=== PATIENT | male | born 1940 | race Caucasian/White ===

== ENCOUNTER 2016-06-11 18:44 | Inpatient (IN) | payer MEDICARE, BC ==
[~2016-06-11] VITALS: Ht 177.8 cm; Wt 139.1 kg
--- NOTE | ~2016-06-11 | CON ---
PATIENT'S NAME: MARK ANTHONY GARVEY [facility] AGE: 75 Y [address] ROOM: [address] [place], [place] [address] LOCATION: [facility] ADMIT DATE: 06/11/2016 Consultation DISCHARGE DATE: FAMILY PHYSICIAN: Conrad Russell MD ATTENDING PHYSICIAN: TUYET PETTY REFERRING PHYSICIAN: Erma Su MD A consult to Dr. Lynn. 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 The history of present illness is obtained from Dr. Lynn; from review of Mr. Garvey' current and old chart and from the [facility] Medical Record. Mr. Garvey is unable to provide a history as he is currently intubated and sedated and his family is unavailable. Mr. Garvey was admitted to [facility] on 2016 and his course has been stormy. He is critically ill due to acute respiratory failure, which was symptomatic for approximately 2 weeks prior to his admission to [facility]. The patient is being treated for acute respiratory distress syndrome and is not improving. On 06/25/2016, the patient underwent bronchoscopy with therapeutic aspiration of secretions and bronchoalveolar lavage and bronchial washings of the right lower lobe to try to characterize his acute respiratory distress syndrome or acute interstitial pneumonia. The patient has been on amiodarone, so respiratory failure due to amiodarone is a consideration. In any case, the patient has progressive thrombocytopenia and now has deep venous thrombosis. Upon admission; the white count was 12,200, the hemoglobin was 10.6, the MCV was 110, and the platelets were 122,000. The patient had 50 segs, 4 bands, 8 lymphs, and 33 atypical lymphocytes. The INR was 1.1 and the PTT was 29. On 06/28/2016, the white count is 14,500, the hemoglobin 9.9, MCV 116, and the platelets 30,000. The patient had 68% neutrophils and 28% lymphocytes. Mr. Garvey has received heparin on 2 occasions during the hospitalization. He received heparin 5000 units once on 06/12/2016 and once on 06/13/2016. This was unfractionated heparin. On 06/24/2016, heparin was initiated as well. The patient underwent lower extremity ultrasound on 06/28/2016, which revealed deep venous thrombosis in the right posterior tibial and left gastrocnemius vein. Mr. Garvey has a history of thrombocytopenia. On 08/08/2015, he was seen in [facility] in referral from Dr. Russell, who had noted the patient was thrombocytopenic. In our office, the white count was 5510 PATIENT'S NAME: MARK ANTHONY GARVEY [facility] AGE: 75 Y [address] ROOM: [address] [place] [id number] LOCATION: [facility] ADMIT DATE: 06/11/2016 Consultation DISCHARGE DATE: FAMILY PHYSICIAN: Conrad Russell MD ATTENDING PHYSICIAN: TUYET PETTY with 36% granulocytes and 55% lymphocytes, the hemoglobin was 11.9, the MCV was 108, and the platelets were 83,000. The LDH was normal. The patient has a history of chronic lymphocytic leukemia, so the possibility of progressive CLL was weighed. The patient also has class 3 obesity, so the possibility of nonalcoholic fatty liver disease complicated with portal hypertension, complicated with hypersplenism was also found to exist. The patient underwent a CAT scan of the abdomen without IV contrast on 08/21/2015. Persistent splenomegaly was present. The spleen was stable and unchanged at 15 cm. There was no evidence of lymphadenopathy. There was extensive vascular calcification in the aortoiliac, femoral, and mesenteric arteries. A bilobed infrarenal abdominal aortic aneurysm was present. We presumed the patient's thrombocytopenia was due to nonalcoholic fatty liver disease leading to portal hypertension, leading to hypersplenism, and recommended proceeding that way. ACTIVE MEDICAL PROBLEMS, CHRONIC AND DIAGNOSED: 1. Class 3 obesity. 2. ASHD leading to a positive treadmill stress test prior to a knee operation in 2000. The patient underwent a 4-vessel CABG. In 2009, he had a PTCA and stent of the obtuse marginal. 3. Bilateral cataracts. 4. Hypercholesterolemia noted in 1994. 5. Type 2 diabetes mellitus noted in 2000, which had not been labile or associated with end-organ damage. 6. Essential arterial hypertension noted in 1990 when he went to donate blood. 7. Depression - situational- led for years. 8. Left-sided colonic diverticulosis noted in 2003 on a screening colonoscopy. 9. Osteoarthritis of the right elbow, right hip, and knees. 10. ASVD with a 4 cm abdominal aortic aneurysm noted in May 2009. 11. [place] light chain restricted, B-cell CLL, indolent, not requiring treatment. ACUTE MEDICAL ILLNESSES (RESOLVED), PAST SURGERIES, INJURIES: 1. In 1990, right and left carpal tunnel repair. 2. In 1998, right shoulder rotator cuff repair and right ulnar nerve decompression at the same time. 3. In 2000, 4-vessel CABG, MCKAY to LAD x2, and vein graft to the obtuse circumflex and posterior descending. 4. In 2000, left knee arthroscopy. 5. In 2000, left TKA. 6. In 2000, right TKA. 7. In 2003, screening colonoscopy. 8. In 2009, spiral fracture of the right distal humerus complicated by radial nerve palsy. PATIENT'S NAME: MARK ANTHONY GARVEY [facility] AGE: 75 Y [address] ROOM: [place] [address] LOCATION: [facility] ADMIT DATE: 06/11/2016 Consultation DISCHARGE DATE: FAMILY PHYSICIAN: Conrad Russell MD ATTENDING PHYSICIAN: TUYET PETTY 9. In 2009 (06/21), left heart catheterization, selective coronary angiography, PTCA and stent of the obtuse marginal. 10. Subdural hematoma. MEDICATIONS: 1. Albuterol. 2. Digoxin. 3. Albumin. 4. Pantoprazole. 5. Methylprednisolone. 6. ASA 325 mg p.o. b.i.d. 7. Norepinephrine. 8. Bisoprolol. 9. Levemir insulin. 10. Novolin insulin. ADVERSE REACTIONS TO MEDICATIONS, TRANSFUSIONS, ALLERGIES: 1. The patient has no known drug or food allergies. 2. The patient received 5 units of packed red blood cells in February 2011. TOBACCO: None. ALCOHOL: None. CAFFEINE: The patient used to consume 36 ounces. IMMUNIZATIONS: Positive childhood immunizations. Positive flu. Positive Pneumovax in 2006. Negative tetanus shot. Positive varicella zoster virus vaccine in 1999. FAMILY HISTORY: Mr. Garvey' mother of breast cancer at 55. His identical twin brother at 51 of a heart attack. SOCIAL HISTORY: and Ms. Garvey live in [place]. 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 He is retired. His is a nurse, who helped found the College [employer] at [employer]. They have a daughter in [place], [place]; a son in [place], [place]; 2 sons in [place], [place]; and a daughter in [place], [place]. PATIENT'S NAME: MARK ANTHONY GARVEY [facility] AGE: 75 Y [address] ROOM: [address] [place], [place] [address] LOCATION: [facility] ADMIT DATE: 06/11/2016 Consultation DISCHARGE DATE: FAMILY PHYSICIAN: Conrad Russell MD ATTENDING PHYSICIAN: TUYET PETTY REVIEW OF SYSTEMS: Unobtainable. PHYSICAL EXAMINATION: VITAL SIGNS: Pulse 64 and regular, blood pressure 115/55, respiratory rate 35, and temperature 97.3. GENERAL: Well-developed, obese, 75-year-old male, sedated, and on the ventilator. HEENT: An orotracheal and orogastric tube were in place. NECK: Without JVD or carotid bruits. SKIN: Seborrheic keratoses. CHEST: Decreased breath sounds bilaterally. No wheezes or crackles anterior. CHEST WALL: Healed vertical CABG scar. CV: Decreased S1 and S2. No murmurs, bruits, or adventitious sounds. ABDOMEN: Well-healed vertical scar on the epigastrium, well-healed horizontal scar just above the umbilicus. Bowel sounds decreased. No bruits. No masses, tenderness, or megaly. BACK AND SPINE: Well-healed keloidal scar over the upper thoracic spine from a cyst removal. GENITALIA AND RECTAL: Not examined. EXTREMITIES: Trace peripheral edema in the lower extremities. Right and left TKA scar, well healed. Stigma on the ventral aspect of the wrist, carpal tunnel. Pulses not palpable in the lower extremities. NEURO: The patient is sedated. IMPRESSION: 1. Low probability of heparin-induced thrombocytopenia. If heparin is otherwise essential for extracorporeal membrane oxygenation, heparin could be used with great caution. 2. Multifactorial thrombocytopenia. 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 This has never needed treatment. 3. The patient was predisposed to thrombocytopenia by his nonalcoholic fatty liver disease related to obesity leading to portal hypertension and hypersplenism. 4. The patient's lengthy hospitalization in the ICU is a risk factor for his thrombocytopenia as well. 5. An inferior vena cava filter would be no benefit if the patient needs anticoagulation for extracorporeal membrane oxygenation. 6. The big question is the patient's overall prognosis and how much we should push. The patient does not seem to be improving. He is on 100% oxygen and PEEP and his underlying medical condition is not good. He is developing renal failure and he has progressive anemia and thrombocytopenia. Best supportive care and possible withdrawal of PATIENT'S NAME: MARK ANTHONY GARVEY [facility] AGE: 75 Y [address] ROOM: [address] [place] [id number] LOCATION: [facility] ADMIT DATE: 06/11/2016 Consultation DISCHARGE DATE: FAMILY PHYSICIAN: Conrad Russell MD ATTENDING PHYSICIAN: TUYET PETTY intensive care unit support needs to be considered at this point. RECOMMEND: Diagnostic: Family visit to clarify his goals and what they would be in light of his current prognosis and the complications with deep venous thrombosis, thrombocytopenia, progressive renal insufficiency, and ARDS. Treatment: If extracorporeal membrane oxygenation is warranted and heparin needs to be employed, then platelet transfusions at the first sign of bleeding and possibly red blood cells would be warranted. PATIENT EDUCATION: Unable to visit with the patient and the family was unavailable, did visit with Dr. Pavon about these considerations. MD DANNIE SERNAB/modl /[id number] CC: MD Erma Cage MD Richard A Hranac, MD William M Vosik, MD d: 06/30/16 2248 t: 07/04/16 1327, CONSULTATION REPORT
--- NOTE | ~2016-06-11 | CATH ---
Cardiac Diagnostic Report Demographics Patient Name MARE Rasheed Gender Male Date of 1940 Age 75 year(s) Patient Number [id number] Date of Study 06/13/2016 Visit Number [id number] Room Number G62[address] [place] [id number] Ht 177.8 cm Wt 144.7 kg Referring Georges Primary Physician Physician Erma MOSER Performing Georges Secondary Physician Physician Erma MOSER Diagnostic Georges Assisting Physician Physician Erma MOSER Interventional Physician Electrician'S Assistant Physician Findings and Conclusions Diagnostic Findings and Conclusion Right heart cath performed. Diagnostic Recommendations Medical therapy. Procedure Description The patient was brought to the diagnostic cardiac catheterization-EP laboratory in the fasting, non-sedated state. Informed consent was obtained in the written and verbal form after the risks and benefits were explained. The patient had no further questions and agreed to proceed. The planned puncture-incision site(s) were shaved and prepped with ChloraPrep and draped in the usual sterile manner. Conscious sedation, supplemental oxygen, and pain control medications were delivered by a registered nurse under physician guidance. Surface ECG rhythm, blood pressure measurement, and pulse oximetry were monitored throughout the procedure. Venous access. The access site was infiltrated with 2% lidocaine. The vessel was entered with the Seldinger technique. A sheath was advanced into the vessel and used for catheter placement. Right heart catheterization. A [place] Maeve catheter was successfully advanced to the right atrium, right ventricle, pulmonary artery, and pulmonary artery wedge position under fluoroscopic guidance. Resting hemodynamics were obtained. Measurements included pressures, arterial and venous oxygen saturation samples, and cardiac output. The [place] was removed without difficulty. Venous hemostasis was achieved. The patient was transferred to a regular nursing floor via cart accompanied by a nurse. The patient left the laboratory in stable condition. Diagnostic Cath Status: Urgent Procedure Procedure Type Diagnostic procedure:Angiography:, RHC Indications: Dyspnea and Pulmonary hypertension. The procedure was explained in detail to the patient. Risks, complications and alternative treatments were reviewed. Written consent was obtained. Medications Reviewed with Patient prior to Procedure. Procedure Data Procedure Date Date: 06/13/2016Start: 01:21 PMEnd: 01:51 PM Entry Locations - Percutaneous access was performed through the Right Brachial vein (Primary location). A 7 Fr sheath was inserted. Hemostasis was successfully obtained using Manual Compression. Closure Comments: Pressure held by Kishor RT.. Devices Used - A6 Fr. Balloon Wedge Catheterwas used for:Right heart cath. Fluoroscopy Time: Diagnostic: 3:18 minutes. Total: 3:18 minutes. Fluoroscopy Dose: Diagnostic: 150 mGy. Total: 150 mGy. Estimated Blood Loss: 5 ml. Medical History Allergies - No known allergies. Risk Factors The patient risk factors include:prior PCI on 03/28/2009; prior CABG on 03/28/2000;obesity, physical activity, treated hypercholesterolemia, treated hypertension, orally-treated diabetes mellitus, chronic lung disease, last creatinine: 2.5 mg/dl, creatinine clearance: 51.45 ml/min, dyslipidemia and prior heart failure . Admission Data Admission Date: 06/11/2016 Admission Time: 09:34 PM Admit Source: Emergency department Insurance Payors: Medicare. Admission Medications + +------+-------+ + + + + !Medication!Dosage!Times !Last !Last !Administered !Comments ! ! ! !Per Day!Delivery !Delivery ! ! ! ! ! ! !Date !Time ! ! ! + +------+-------+ + + + + !Aspirin ! ! ! ! ! ! ! !(any) ! ! ! ! ! ! ! + +------+-------+ + + + + !Statin ! ! ! ! ! ! ! !(any) ! ! ! ! ! ! ! + +------+-------+ + + + + Hemodynamics Condition: Rest O2 Consumption: Estimated: 302.22Heart Rate: 80 bpm Pressures (mmHg) +-----+ + !Site !Pressure ! +-----+ + !RA ! (11) ! +-----+ + !RV !47/3 ,10 ! +-----+ + !PCW ! (12) ! +-----+ + !PA ! (36) ! +-----+ + Shunts Oxygen Values O2 Capacity 131.92 O2 Consumption 302.22 Signatures dtt: Erma Su: 06/13/16 1321 Physician Self Edit
--- NOTE | ~2016-06-11 | ECHO ---
Transthoracic Echocardiography Report (TTE) Demographics Patient Name GALINA GARVEY Date of Study 06/17/2016 Patient Number [id number] Visit Number [id number] Date of 1940 Room Number G6339 Gender Male Number Age 75 year(s) Referring Drew Martines MD Wind Farm Operations Manager Selene Borden [facility] Physician Zenaida Guillermo MD Physician Interpreting Georges Ritchie Shelver Physician MD Supervising Ordering MD/MLP Physician Nurse Stress Paraplanner Conclusions Contractility Score Summary Normal Left Ventricular contractility was noted. Summary The estimated left ventricular ejection fraction is 50-55%. Informed consent was obtained, bubble study was done, there is no evidence for a PFO or ASD. The right atrium is moderately dilated.Low normal RV function. Negative bubble study. Procedure Type of Study TTE procedure:Echo Limited w/o Contrast. Procedure Date Date: 06/17/2016 Start: 11:36 AM Study Location: Inpatient Portable Technical Quality: Good visualization Indications:Dyspnea/SOB. Additional Indications:Hypoxia Appropriate Use Criteria: 9 Patient Status: Routine Contrast Medium: Bubble Study. HR: 59 bpm BP: 160/67 mmHg Allergies - No known allergies. Doppler Measurements Findings Left Atrium The interatrial septum appears aneurysmal. Informed consent was obtained, bubble study was done, there is no evidence for a PFO or ASD. Right Atrium The right atrium is moderately dilated. Negative bubble study. Contractility Score LV regional wall motion:(0-Non visualized 1-Normal 2-Hypokinesis 3-Akinesis 4-Dyskinesis 5-Aneurysm) Signature dtt: Erma Su dtd: 06/17/16 1136 Physician Self Edit
--- NOTE | ~2016-06-11 | CON ---
PATIENT'S NAME: GALINA GARVEY [facility] AGE: 75 Y [address] ROOM: [address] [place], [place] [address] LOCATION: GICU ADMIT DATE: 06/11/2016 Consultation DISCHARGE DATE: FAMILY PHYSICIAN: Conrad Russell MD ATTENDING PHYSICIAN: TUYET PETTY DATE OF CONSULTATION: 06/12/2016 REFERRING PHYSICIAN: Erma Su MD This is a [facility] Nephrology Consultation REASON FOR CONSULTATION: Acute kidney injury on chronic kidney disease. HISTORY OF PRESENT ILLNESS: This is a 75-year-old male patient who was admitted for increased shortness of breath, exacerbation of chronic systolic heart failure with last known reported ejection fraction of 45% one week ago. The patient was recently seen by Dr. Russell at [facility] for complaints of increasing shortness of breath on Tuesday of last week. The patient was noted to have a creatinine at that time of 1.22 per the patient's . Last night, the patient presented to the emergency room complaining of increasing shortness of breath, dyspnea on exertion, orthopnea, and PND. At the patient's outpatient clinical office visit, his oral Lasix was increased from 20 mg in the morning and 20 mg at noon to 40 mg in the morning and 20 mg at noon. While in the emergency room, the patient's creatinine was found to be 2.3. The patient was noted to be in fluid volume overload and was given Lasix 40 mg IV. Per the patient and his , he has been feeling poorly over the last two weeks. He denied any cough, fevers, night sweats, or chills. He has had some diarrhea over the last two days that he says is new. He reports poor oral intake and poor urine output over the last couple of weeks. A chest x-ray in the emergency room did show bilateral congestion. The patient does have a past medical history of hypertension; diabetes mellitus; combined systolic and diastolic heart failure; coronary artery disease status post coronary artery bypass grafting surgery x5 vessels in 2000; and paroxysmal atrial fibrillation, on amiodarone; contraindicated to Coumadin due to history of subdural hematoma. Due to the patient's acute kidney injury on chronic kidney disease Nephrology has been consulted. The patient's creatinine reportedly was 1.22 one week ago and has increased to 2.3 today. PAST MEDICAL HISTORY: As listed above includin. Diabetes type 2, on metformin. 2. History of subdural hematoma in 2011, status post craniotomy and evacuation. 3. Paroxysmal atrial fibrillation, on amiodarone therapy. 4. Ischemic cardiomyopathy with last reported ejection fraction of 45%. 5. Hypertension. 6. Hyperlipidemia. 7. GERD with history of peptic ulcer disease. 8. Depression. 9. History of chronic systolic heart failure. 10. History of moderate pulmonary hypertension as evidenced with RVSP of 55 mmHg on 06/12/2016 ALLERGIES: NONE TO MEDICATION.PATIENT'S NAME: GALINA GARVEY [facility] AGE: 75 Y [address] ROOM: [address] [address] LOCATION: [facility] ADMIT DATE: 06/11/2016 Consultation DISCHARGE DATE: FAMILY PHYSICIAN: Conrad Russell MD ATTENDING PHYSICIAN: TUYET PETTY CURRENT HOME MEDICATIONS: 1. Amiodarone 200 mg daily. 2. Amlodipine 5 mg twice a day. 3. Aspirin 81 mg daily. 4. Lipitor 80 mg daily. 5. Coreg 6.25 mg twice a day. 6. Lasix 20 mg every evening and 40 mg every morning. 7. Metformin 850 mg p.o. b.i.d. 8. Protonix 40 mg daily in the morning. 9. Zoloft 150 mg p.o. daily. 10. Multivitamin 1 tablet daily. 11. Ultram 50 mg p.o. p.r.n. for pain. 12. Entresto 24 mg/26 mg 1 tablet p.o. b.i.d. PAST SURGICAL HISTORY: Includes: 1. Coronary artery bypass grafting x5 vessels in 2000. 2. Status post bilateral total knee arthroplasties in 2000. 3. Status post right humerus fracture status post surgical repair in 2009. 4. Status post subdural hematoma with post craniotomy and evacuation in 2010. 5. Status post bilateral carpal tunnel syndrome, median nerve release. SOCIAL HISTORY: The patient does live at home with his . He denies any smoking, drinking, or illicit drug use. FAMILY HISTORY: Reviewed and is noncontributory. There is no history of renal disease or dialysis. He does have a twin brother who suffered a myocardial infarction at the age of 52. His mother did have breast cancer complication and from this. His father from advanced age. REVIEW OF SYSTEMS: GENERAL: Complains of fatigue x2 weeks. Complains of generalized malaise. EYES: No double vision or blurred vision. NOSE: No epistaxis or rhinorrhea. MOUTH: No gingival bleeding. THROAT: No sore throat, hoarseness, or cough. RESPIRATORY: Does deny any hemoptysis or wheezing. CARDIOVASCULAR: Positive for PND, orthopnea, and dyspnea on exertion. Positive for shortness of breath. Denies any current chest pain. Denies presyncope or syncope. GASTROINTESTINAL: Denies nausea or vomiting. Positive for diarrhea. Positive for loose stools. Positive for frequency of stools over the last two days. Denies hematemesis or hematochezia. GENITOURINARY: Positive for decreased urinary output over the last two weeks. Denies incontinence. Denies history of BPH. MUSCULOSKELETAL: Generalized arthralgias. No new myalgias or arthralgias. NEUROLOGICAL: Denies numbness and tingling in the upper or lower extremities. Difficulty in ambulation more than 2 feet over the last few days. HEMATOLOGICAL: Denies any bruising or easy bleeding. IMMUNOLOGICAL: Denies a history of recent infections. PSYCHIATRIC: Positive for depression.PATIENT'S NAME: GALINA GARVEY [facility] AGE: 75 Y [address] ROOM: [id number] [place] [id number] LOCATION: [facility] ADMIT DATE: 06/11/2016 Consultation DISCHARGE DATE: FAMILY PHYSICIAN: Conrad Russell MD ATTENDING PHYSICIAN: TUYET PETTY LABORATORY DATA: Labs: ProBNP is 10,801. WBCs are 9.6, hemoglobin 9.6, hematocrit 30.3, and platelets 104,000. Glucose is 227, BUN is 54, creatinine is 2.3, sodium is 144, potassium 3.7, chloride 108, CO2 of 24, calcium 8.0, and albumin is 2.7. AST is 49, ALT is 38, alkaline phosphatase is 114, magnesium is 2.1, and phosphorus is 3.6. Hemoglobin A1c is 6.7. Protein to creatinine ratio is 0.3, and a random urine sodium is 51, and urine urea is 459. PHYSICAL EXAMINATION: VITAL SIGNS: Blood pressure is 141/69, pulse is 89, respirations are 18, temperature is 98.2, and saturations are 92% on 6 L nasal cannula. GENERAL: On exam, this is an obese, white male who appears his approximate stated age, he is in moderate amount of distress secondary to shortness of breath. He is sitting up in the bed at this time. HEENT: His head is normocephalic and atraumatic. Eyes; pupils are equal, round, and reactive to light and accommodation. EOMs are intact. Nose is midline. Mouth; no gingival bleeding. Throat is without lymphadenopathy or carotid bruits. Positive JVD. RESPIRATORY: Lung sounds are coarse and diminished in the bases bilaterally. Breaths are labored. The patient is on 6 L nasal cannula. CARDIOVASCULAR: Distant heart tones noted with an irregularly irregular rate and rhythm with an apical heart rate of 112 beats per minute. Unable to appreciate any murmurs, rubs, or thrills. ABDOMEN: Obese, positive bowel sounds. EXTREMITIES: Show 1+ pitting edema in the lower extremities. Greater in the left than the right. NEUROLOGIC: Cranial nerves 2 through 12 are grossly intact. ASSESSMENT AND PLAN: 1. Acute kidney injury on chronic kidney disease. This is likely prerenal etiology with fluid volume excess secondary to acute on chronic combined systolic and diastolic heart failure. The patient will start on Bumex 4 mg IV push followed by Bumex drip at 1 mg/hour. We will aggressively diurese the patient as tolerated. Blood pressure should support at this time. We are going to also give metolazone 10 mg p.o. x1. We will monitor daily weights and strict intakes and outputs. The patient does have a Beal placed, and we will monitor his outputs closely. 2. Acute hypoxic respiratory failure. The patient is on [address] at this time[address] Dr. Elizabeth does recommend we further analyze the CT without contrast at this time for further recommendations as to the patient's fluid volume status. There is some concern there is an underlying pleural effusion on the right versus consolidation. Further recommendations will be forthcoming. At this time, the patient is on IV Levaquin, renal dose. 3. Hypertension. Blood pressures are marginal. We will have the patient hold his Coreg at this time while we attempt aggressive diuresis as tolerated. 4. Decompensated combined systolic and diastolic heart failure. We will plan to diurese and Cardiology has been consulted. 5. Paroxysmal atrial fibrillation. The patient is currently out of rhythm. He is on amiodarone [address] Su has been consulted and further recommendations will be forthcoming. At this time, the patient's rates are slightly tachycardic with 110s apically. Repeat echocardiogram is in process. PATIENT'S NAME: GALINA GARVEY [facility] AGE: 75 Y [address] ROOM: [place] [address] LOCATION: [facility] ADMIT DATE: 06/11/2016 Consultation DISCHARGE DATE: FAMILY PHYSICIAN: Conrad Russell MD ATTENDING PHYSICIAN: TUYET PETTY This patient has been seen and assessed by Dr. Elizabeth. His care is being conducted in consultation with Dr. Elizabeth as well as me. We will plan further recommendations as they are forthcoming. In the interim, the patient is going to be diuresed as tolerated. LILY POLLOCK, V[place]EN[place], LEATHER GOODS II ASSEMBLER FOR [facility] ANG ELIZABETH MD ENS/modl /[id number] d: 06/13/16 1803 t: 07/08/16 1239, CONSULTATION REPORT
--- NOTE | ~2016-06-11 | OR ---
PATIENT'S NAME: GALINA GARVEY [facility] AGE: 75 Y [address] ROOM: [place] [address] LOCATION: [facility] ADMIT DATE: 06/11/2016 OR/Procedure Report DISCHARGE DATE: FAMILY PHYSICIAN: Conrad Russell MD ATTENDING PHYSICIAN: TUYET PETTY SURGEON: Jann Lynn MD UX LEAD: Mike Chong, respiratory therapist. DATE OF PROCEDURE: 06/25/2016 PROCEDURES PERFORMED: 1. Bronchoscopy with therapeutic aspiration of secretions. 2. Bronchoscopy with bronchoalveolar lavage and bronchial wash of the right lower lobe. INDICATIONS AND PREPROCEDURE DIAGNOSES: 1. Severe acute hypoxic respiratory failure. 2. Acute respiratory distress syndrome or acute interstitial pneumonia. 3. Abnormal chest x-ray with bilateral opacities. POSTPROCEDURE DIAGNOSES: 1. Severe acute hypoxic respiratory failure. 2. Acute respiratory distress syndrome or acute interstitial pneumonia. 3. Abnormal chest x-ray with bilateral opacities. CONSENT: Consent was obtained from the patient's after all the indications, risks, benefits, and alternatives were explained at length. I particularly emphasized that the patient's respiratory status may deteriorate. At the time of the procedure, he was intubated and sedated and connected to a mechanical ventilator and requiring 100% FiO2 and a PEEP of 12. The patient's verbalized understanding over the phone and agreed to the procedure. PROCEDURE DESCRIPTION: The patient was already intubated, in the intensive care unit and connected to continuous monitoring devices. The bronchoscope was advanced through the endotracheal tube and the airways were examined. FINDINGS: The endotracheal tube tip was at 4 cm above the candido in stable position. The patient had a large amount of thick, but clear secretions in the right lower lobe and a moderate amount of secretions in the left lower lobe. There were no significant secretions seen in the other lobes. I performed a bronchial wash in the right lower lobe. 40 mL of clear saline were instilled with return of 15 mL of slightly cloudy fluid. Afterwards, I performed aggressive suctioning of the secretions using saline aliquots many times. A careful examination, after all the secretions were suctioned, did not reveal any endobronchial lesions, old or new blood clots. The patient had PATIENT'S NAME: GALINA GARVEY [facility] AGE: 75 Y [address] ROOM: [address] [address] LOCATION: [facility] ADMIT DATE: 06/11/2016 OR/Procedure Report DISCHARGE DATE: FAMILY PHYSICIAN: Conrad Russell MD ATTENDING PHYSICIAN: TUYET PETTY mild diffuse airway edema, but no other signs of the inflammation. At the end of the procedure, a bronchoalveolar lavage was performed in the right lower lobe. 80 mL of sterile saline were instilled with return of 15 mL of slightly cloudy bronchoalveolar lavage fluid. The bronchoscope was withdrawn and the patient was returned to the ICU team for further management. COMPLICATIONS: The patient had brief periods of hypoxia, for which I interrupted the procedure few times. He was also hypoxic at the end of the procedure with the oxygen saturations around 86% to 88%. His oxygen saturations never dropped below 85% throughout the procedure. ESTIMATED BLOOD LOSS: None. SPECIMENS: Bronchial wash will be sent for microbiology studies. The bronchoalveolar lavage will be sent for cytology and microbiology studies. MD MARJ BALBUENA/modl /[id number] d: 06/25/161801 t: 06/25/161935, OPERATIVE SUMMARY
--- NOTE | ~2016-06-11 | CON ---
PATIENT'S NAME: GALINA GARVEY [facility] AGE: 75 Y [address] ROOM: [id number] [place], [place] [address] LOCATION: GICU ADMIT DATE: 06/11/2016 Consultation DISCHARGE DATE: FAMILY PHYSICIAN: Conrad Russell MD ATTENDING PHYSICIAN: TUYET PETTY DATE OF CONSULTATION: 06/12/2016 REFERRING PHYSICIAN: Erma Su MD HISTORY OF PRESENT ILLNESS: Mr. Garvey is a 75-year-old male, patient of Dr. Bonds, who asked me to see him regarding his shortness of breath. He has had about 2 weeks' worth of worsening exertional shortness of breath. He was seen by Dr. Conrad Russell 4 days earlier, and his Actos and lisinopril were both discontinued, and he was started on Protonix, Entresto, and his Lasix dose was increased to 40 in the morning and 20 in the afternoon instead of 20 twice a day. His breathing has gotten further worse. There were no additional symptoms of cough or fever. He was brought in and was found to have renal insufficiency, even though, just 4 days back his creatinine was 1.2. His creatinine now is up to 2.3. His urine output has been poor, and his breathing has gotten worse, and his oxygen requirement is getting worse. He has no chest pains per se. There is no syncope, palpitations, or ankle swelling. The patient has no prior history of sleep apnea. He has history of type 2 diabetes. His cholesterol is known to be elevated. He has significant family history of premature coronary artery disease with his twin brother, who had an NJ at the age of 52. His blood pressure has not been too bad. He is a nonsmoker. There is no prior history of NJ. Several years ago, he had a stress test done for before preop clearance, and he underwent cardiac catheterization, and then bypass surgery. He has not had an NJ as far as the family knows. He has been in atrial fibrillation. He has been on amiodarone for a long time now. He has some history of congestive heart failure. MEDICATIONS: 1. Levofloxacin. 2. Piperacillin and tazobactam. 3. Linezolid. 4. Bumex drip. 5. Atorvastatin 80 mg a day. 6. Amiodarone 200 mg a day. PATIENT'S NAME: GALINA GARVEY [facility] AGE: 75 Y [address] ROOM: [place] [address] LOCATION: [facility] ADMIT DATE: 06/11/2016 Consultation DISCHARGE DATE: FAMILY PHYSICIAN: Conrad Russell MD ATTENDING PHYSICIAN: TUYET PETTY 7. Aspirin 81 mg a day. 8. Protonix 40 mg a day. 9. Insulin. 10. Sertraline 150 mg a day. ALLERGIES: NO KNOWN DRUG ALLERGIES. PAST MEDICAL HISTORY: 1. History of subdural hematoma in 2011, after being placed on heparin. 2. Status post bilateral total knee arthroplasties. 3. Right humerus fracture surgical repair. 4. Carpal tunnel release. 5. Morbid obesity. SOCIAL HISTORY: The patient is . He denies abusing alcohol. FAMILY HISTORY: His twin brother had an NJ at age of 62. REVIEW OF SYSTEMS: He is hardly able to converse because of the shortness of breath, on 8 L of oxygen. PHYSICAL EXAMINATION: VITAL SIGNS: His blood pressure is 130/80, heart rate is in the 100s and irregular, respiration is 18, afebrile. HEENT: Normal. NECK: Supple. No JVD, thyromegaly, lymphadenopathy, or carotid bruit. PMI is not well located. First and second heart sounds are irregular. There are no added sounds. He has coarse crackles both lower lung shukla. ABDOMEN: Obese. EXTREMITIES: Reveal no edema. CENTRAL NERVOUS SYSTEM: Intact. ASSESSMENT: 1. Coronary artery disease, status post bypass grafting. 2. Recent worsening of ejection fraction. 3. Atrial fibrillation. 4. Chronic Cordarone therapy. 5. The patient is not anticoagulated in spite of his CHADS2-VASc score of 4 at least because of presence of subdural hematoma with heparin in the past. 6. Congestive heart failure, systolic and diastolic probably. PATIENT'S NAME: GALINA GARVEY [facility] AGE: 75 Y [address] ROOM: [place] [address] LOCATION: [facility] ADMIT DATE: 06/11/2016 Consultation DISCHARGE DATE: FAMILY PHYSICIAN: Conrad Russell MD ATTENDING PHYSICIAN: TUYET PETTY 7. Possible amiodarone toxicity. 8. Acute renal insufficiency, possibly secondary to Entresto. RECOMMENDATIONS: 1. We will check his echocardiogram to see if the left atrial pressures are elevated. He is already getting diuresed by the clay modeler at this time. I think a CT chest will be done to look for interstitial lung disease at some point down the line. 2. Again, I appreciate this opportunity to participate in the care of Mr. Garvey. I will also hold his amiodarone for now, and he is not currently on Entresto anymore. MD LUIS MANUEL JEROME/surya /[id number] d: 06/12/16 2219 t: 06/22/16 1234, CONSULTATION REPORT
--- NOTE | ~2016-06-11 | HP ---
PATIENT'S NAME: GALINA GARVEY [facility] AGE: 75 Y [address] ROOM: G6339 [place], [place] [address] LOCATION: GPCU ADMIT DATE: 06/11/2016 History & Physical DISCHARGE DATE: FAMILY PHYSICIAN: Conrad Russell MD ATTENDING PHYSICIAN: TUYET PETTY DATE OF SERVICE: CHIEF COMPLAINT: Worsening exertional dyspnea over the last 2 weeks progressively getting worse and also associated with decreased oral intake and also decreased urine output also for the last 2 weeks. HISTORY OF PRESENT ILLNESS: This is a 75-year-old male who says that for the last 2 weeks he has been experiencing worsening exertional dyspnea associated with poor appetite and also he has noticed decreased urine output over the last 2 weeks. These symptoms have been getting progressively worse. He denies any chest pain. He denies any cough. He also denies any leg edema. He says that his diet is healthy and low in salt. The patient states that he went to see his primary care physician, Dr. Russell, recently and had an EKG and echo performed in the office. He said the echo was done very recently in this year. EKG was also normal as he was told. Because of the worsening exertional dyspnea, the patient's Lasix dose was increased. Usually, he takes 20 mg p.o. b.i.d., it was increased to 20 mg in the morning and 40 mg in the evening. This was just increased a few days ago. However, he still noticed decreased urine output. Because of this worsening exertional dyspnea, the patient came here for evaluation. REVIEW OF SYSTEMS: As mentioned in the history of present illness. All other systems reviewed and negative except those mentioned in history of present illness. PAST MEDICAL HISTORY: 1. Diabetes type 2. 2. History of a subdural hematoma in 2011, status post craniotomy and evacuation. 3. Paroxysmal atrial fibrillation, not on long-term anticoagulation due to history of peptic ulcer disease in the past and also secondary to fall risk. 4. Last echo on our computer in 2011 showed EF of 66% with grade 1 diastolic heart failure. 5. History of coronary artery disease status post 5-vessel CABG in 2000. 6. The patient had a stress test performed, the most recent one on file was from August 26, 2015, showed EKG portion of the stress test is clinically PATIENT'S NAME: GALINA GARVEY [facility] AGE: 75 Y [address] ROOM: [id number] [place], [place] [address] [facility] ADMIT DATE: 06/11/2016 History & Physical DISCHARGE DATE: FAMILY PHYSICIAN: Conrad Russell MD ATTENDING PHYSICIAN: TUYET PETTY negative for ischemia by diagnostic criteria. Myocardial perfusion imaging is mildly abnormal. The images revealed a mostly fixed defect in the entire inferolateral wall consistent with infarct. Overall, left ventricular ejection fraction to be around 51%. This is an intermediate risk stress test. Resting EKG showed normal sinus rhythm. ALLERGIES: NO KNOWN DRUG ALLERGIES. HOME MEDICATIONS: Currently has been reconciled. SOCIAL HISTORY: The patient denies any alcohol, cigarette, or illegal drug use. PAST SURGICAL HISTORY: 1. Status post CABG in 2000. 2. Status post bilateral total knee arthroplasties in 2000. 3. Status post right humerus fracture, status post a surgical repair in 2009. 4. Status post subdural hematoma, status post craniotomy and evacuation in 2010. 5. Status post bilateral carpal tunnel syndrome, median nerve release. FAMILY HISTORY: Father from advanced age from a cause that he could not remember. Mother from breast cancer complication. He has a twin brother, who suffered myocardial infarction at the age 52. PHYSICAL EXAMINATION: VITAL SIGNS: At the time of my dictation, temperature 98.4, heart rate 92, respirations 20, blood pressure 104/55, saturation 96% on 6 L nasal cannula. GENERAL APPEARANCE: Alert and oriented x3, in no acute distress. HEENT: Pupils are equally round and reactive to light. Extraocular muscles are intact. Nasal turbinates are normal bilaterally. Moist oral mucosa. NECK: No JVD. No cervical lymphadenopathy. No neck stiffness. CARDIOVASCULAR: Regular rate and rhythm. Normal S1, S2. No murmur, no rubs, no gallops. RESPIRATORY: Clear to auscultation. ABDOMEN: Soft, nontender, nondistended, normal bowel sounds. No hepatosplenomegaly. EXTREMITIES: He chronically has +1 pitting edema in the left lower extremity due to prior history of CABG. No edema in the right lower extremity. NEUROLOGICAL: Grossly nonfocal. SKIN: No ulcer, no rash, and no cyanosis. PATIENT'S NAME: MARE, GALINA L [facility] AGE: 75 Y [address] ROOM: [facility] [place], [place] [address] LOCATION: GPCU ADMIT DATE: 06/11/2016 History & Physical DISCHARGE DATE: FAMILY PHYSICIAN: Conrad Russell MD ATTENDING PHYSICIAN: TUYET PETTY MUSCULOSKELETAL: No joint pain. No muscle pain. LABORATORY DATA: ABG on 5 L nasal cannula showed pH is 7.41, pCO2 is 37, PO2 is 67, bicarbonate 23.5, saturation 93%. Lactic acid 1.2. Troponin less than 0.04. CPK 45, proBNP 9718. White blood cells 9.6, hemoglobin 9.6, hematocrit 30.3, MCV 109.8, platelets 104. Glucose 2-7. BUN 54, creatinine 2.3. Sodium 144, potassium 3.7, chloride 108, CO2 24, calcium 8.0, GFR 28, total protein 6.1, albumin 2.7, AST 49, ALT 38, alkaline phosphatase 114. Total bilirubin 1.2. Phosphorus 3.6, magnesium 2.1, hemoglobin A1c 6.7, INR 1.1. Urinalysis negative for UTI. CK-MB 0.9, free T4 1.7. TSH 1.78, procalcitonin 0.5, D- dimer 4.7. IMAGING STUDY: Chest x-ray, currently is pending. EKG on admission show atrial fibrillation with PVC, heart rate 95, QRS 122. ASSESSMENT AND PLAN: 1. Acute hypoxemic respiratory failure, likely secondary to acute on chronic diastolic heart failure and possibly pulmonary emboli and also possibly pneumonia: The patient says that recently he had echo performed from the outside facility in his primary care physician's office. I will get the records of the transthoracic echo report. I will put a Beal catheter right now to see how much urine output he has. The patient was given IV 40 Lasix mg one time. However, he has not voided. Therefore, Beal catheter will help with the urine output measurement and also in the setting of acute kidney injury and decreased urine output, we can also rule out postobstructive cause of acute kidney injury. Strict in's and out's and strict daily weights. Fluid restriction to less than 1.2 L per day for now. I will check the blood work again in the morning with proBNP also. Depending on his urine output and on his condition, I can give more Lasix if necessary. Further plan depends on clinical course. I will get a Cardiology consult. The patient has a history of coronary artery disease requiring CABG before, though ischemia has to be ruled out as a cause of the heart failure. The second cause is the D-dimer is high, but he also has acute kidney injury. According to the patient, he recently saw his primary care physician. His creatinine was normal according to the patient. Therefore, this is most likely acute kidney injury. D-dimer can also be elevated in acute kidney injury; however, in the setting of acute hypoxemic respiratory failure, I want to rule out pulmonary embolism, but his kidney function prohibits me doing CT pulmonary angiogram. I will get a ventilation/perfusion scan to rule out probability of pulmonary embolism. Further plan depends on clinical course. Pneumonia is another differential, I would give him one dose of PATIENT'S NAME: GALINA GARVEY [facility] AGE: 75 Y [address] ROOM: [address] [address] [facility] AD[facility] DATE: 06/11/2016 History & Physical DISCHARGE DATE: FAMILY PHYSICIAN: Conrad Russell MD ATTENDING PHYSICIAN: TUYET PETTY given that his procalcitonin was slightly elevated on admission. Further continuation of antibiotics with be determiend tomorrow by the incoming hospitalist depending on patient's clinical course. ARDS should also be considered depending on his clinical course and chest x ray readings. Will consult Pulmonology if his acute hypoxemic respiratory failure worsens. 2. Regarding his acute kidney injury, I will get urine electrolytes. This is likely could be from cardiorenal from heart failure or could be from prerenal from decreased oral intake or could be from post renal from obstructive acute kidney injury. Either way, I will get a Beal in place. Consult Nephrology. I will get an ultrasound of the kidney tomorrow morning and then check the urine electrolytes. I will also check a urinary protein and creatinine ratio as well. 3. Regarding his paroxysmal atrial fibrillation: Currently on telemetry, seems to be sinus, but EKG showed atrial fibrillation, not in rapid ventricular response. The patient declined anticoagulation and knows that he has high risk of stroke. The patient is a fall risk and also due to the history of peptic ulcer disease and also history of subdural hematoma, status post evacuation, the patient is not taking anticoagulation for these reasons. For now, I will continue his home medication including Lipitor, aspirin, amiodarone, and Coreg. Further plan depends on clinical course. 4. Regarding his type 2 diabetes, he will be on insulin sliding scale with NovoLog a.c. and h.s., mild dose, and titrate as necessary. I will hold metformin in the setting of acute kidney injury and elevation of creatinine. 5. Deep vein thrombosis prophylaxis: He will be on heparin subcutaneous 5000 units 3 times a day. Depending on the ventilation perfusion scan, if he has pulmonary embolism, then anticoagulation has to be addressed again with the patient. Time spent in care on the day of admission is 40 minutes including chart review, interviewing the patient, addressing all the questions and concerns the patient had, and going over the plan of care with the patient and the patient's family members at the bedside and also with the nurses. Further plan of care will be decided by the incoming hospitalist who will be taking over the care starting on 06/12/16 at 8AM. MD MYRNA JONES/surya /[id number] D: [id number] T: [id number] HISTORY & PHYSICAL
--- NOTE | ~2016-06-11 | ECHO ---
Transthoracic Echocardiography Report (TTE) Demographics Patient Name GALINA GARVEY Date of Study 06/12/2016 Patient Number [id number] Visit Number [id number] Date of 1940 Room Number G6339 Gender Male Number Age 75 year(s) Referring Drew Martines MD Type Rolling Machine Operator Shanell RVT, [facility] Physician Ann Physician Interpreting Georges Ritchie MD Bullet Assembly Press Setter Operator Physician Supervising Ordering Jewell Jenkins MD, MD/MLP Physician Nurse Stress Field Service Coordinator Conclusions Summary The estimated left ventricular ejection fraction is 45%.Moderate concentric left ventricular hypertrophy with normal WM and size. Mild LA dilatation. RV is mild to moderately dilated. Mild to moderately reduced right ventricular function. The right atrium is mildly dilated. Mild mitral regurgitation by color Doppler. Mild-moderate tricuspid regurgitation by color Doppler. There is moderate pulmonary hypertension. The pulmonary pressure (RVSP) is 55 mmHg. Procedure Type of Study TTE procedure:2D Echocardiogram, M-Mode, Doppler , Color Doppler. Procedure Date Date: 06/12/2016 Start: 02:57 PM Study Location: Inpatient Portable Technical Quality: Adequate visualization Indications:CHF. Appropriate Use Criteria: 9 Patient Status: Routine HR: 119 bpm BP: 126/59 mmHg M-Mode/2D Measurements LV Diastolic Dimension: 5.78 cm LV Systolic Dimension: 3.6 cm LV Septum Diastolic: 1.82 cm LV PW Diastolic: 1.74 cm AO Root Dimension: 2.9 cm Cardiac Output: 9.36 l/min AV Cusp Separation: 1.4 cm RV Diastolic Dimension: 3.06 cm LA volume: 77 ml LVOT: 2.4 cm RV Base: 3.1 cm LVOT VTI: 17.4 cm RV Mid: 2.5 cm LV Stroke volume: 78.68 ml TAPSE: 1.25 cm TDI-S': 8.8 cm/s Doppler Measurements AV Peak Velocity: 1.61 m/s MV Peak E-Wave: 1.01 m/s AV Peak Gradient: 10.37 mmHg AV Mean Gradient: 5 mmHg MV P1/2t: 67 msec LVOT Peak Velocity: 0.77 m/s TR Velocity:3.15 m/s PV Peak Velocity: 0.99 m/s TR Gradient:39.69 mmHg PV Peak Gradient: 3.94 mmHg Estimated RAP:15 mmHg Estimated PASP: 54.69 mmHg Estimated RVSP: 55 mmHg Findings Left Ventricle Moderate concentric left ventricular hypertrophy with normal internal dimension and WM.Mild diffuse hypokinesia with EF 45%. Right Ventricle Mild to moderately reduced right ventricular function. Left Atrium The left atrium is mildly dilated. Right Atrium The right atrium is mildly dilated. Mitral Valve Mild mitral annular calcification. Mild mitral regurgitation by color Doppler. Aortic Valve The aortic valve is moderately sclerotic. Tricuspid Valve Mild-moderate tricuspid regurgitation by color Doppler. There is moderate pulmonary hypertension. The pulmonary pressure (RVSP) is 55 mmHg. Pulmonic Valve Normal pulmonic valve structure and function. Pericardial Effusion No evidence of pericardial effusion. Miscellaneous IVC measured 1.69 cm with poor inspiratory collapse. Pleural Effusion No evidence of pleural effusion. Signature dtt: Erma Su dtd: 06/12/16 1454 Physician Self Edit
--- NOTE | ~2016-06-11 | CON ---
PATIENT'S NAME: GALINA GARVEY [facility] AGE: 75 Y [address] ROOM: [place] [address] LOCATION: GPCU ADMIT DATE: 06/11/2016 Consultation DISCHARGE DATE: FAMILY PHYSICIAN: Conrad Russell MD ATTENDING PHYSICIAN: TUYET PETTY DATE OF CONSULTATION: 06/12/2016 REFERRING PHYSICIAN: Erma Su MD INDICATION: Abnormal CT. HISTORY OF PRESENT ILLNESS: This 75-year-old male admitted for dyspnea on exertion. He reports increased and progressive shortness of breath over the last 2 weeks. He denies any sore throat, cough, sputum production, congestion, fevers, or chills. He denies any nausea or vomiting. He is 91% on 6 L currently. He has been given IV diuretics and will be starting Bumex drip. He has a history of CAD with bypass, PAF, and diabetes. He denies any lung history. He has no tobacco history. He reports that he did have a cough with some sputum today for the 1st time; otherwise, it has mainly been dyspnea on exertion with fatigue. No chest pain. Chest x-ray yesterday showed opacities at the right lung with underlying edema. A repeat chest x-ray and CT of the chest are pending today. PAST MEDICAL HISTORY: Includes, 1. Diabetes type 2. 2. History of subdural hematoma, status post craniotomy and evacuation in 2011. 3. PAF, not on long-term anticoagulation due to history of subdural hematoma. 4. CAD, status post 5-vessel CABG in 2000. ALLERGIES: SEE MAR. MEDICATIONS: See MAR. SOCIAL HISTORY: The patient denies any alcohol or tobacco use. FAMILY HISTORY: Father from advanced age and his mother passed from breast cancer complications. He has a twin brother who suffered an ND at the age of 52. PATIENT'S NAME: GALINA GARVEY [facility] AGE: 75 Y [address] ROOM: [place] [address] LOCATION: GPCU ADMIT DATE: 06/11/2016 Consultation DISCHARGE DATE: FAMILY PHYSICIAN: Conrad Russell MD ATTENDING PHYSICIAN: TUYET PETTY REVIEW OF SYSTEMS: 12-point review of systems is negative except for what is noted in the HPI. PHYSICAL EXAMINATION: VITAL SIGNS: Blood pressure 141/69, pulse 101, respirations 18, and temperature 98.2. He is 91% on 6 L nasal cannula. GENERAL: This is a 75-year-old well-developed, well-nourished, morbidly obese male who is alert and oriented x3 and appears in no acute distress at the time of exam. HEENT: Head: Normocephalic, atraumatic. Eyes: Clear. NECK: Supple. No adenopathy. No carotid bruits or JVD. LUNGS: Clear throughout bilaterally. No wheezes or rales. HEART: Regular rate and rhythm without murmur, gallop, or rub. ABDOMEN: Soft, nontender, and nondistended. Bowel sounds x4. EXTREMITIES: No cyanosis or clubbing. Trace lower extremity edema. DIAGNOSTIC DATA: ABG performed shows a pH 7.41, pCO2 37, PO2 67, and bicarb 23.5. ProBNP [place] 34935 on admission and down to 9718 today. Sodium 144, potassium 3.7, BUN 54, and creatinine 2.3. WBC 9.6, hemoglobin 9.6, hematocrit 30.3, and platelets 104. IMPRESSION: 1. Acute hypoxic respiratory failure, question secondary to pulmonary edema versus infectious process versus combination of both versus acute respiratory distress syndrome. 2. Abnormal CT. 3. Acute on chronic combined heart failure. 4. Cor pulmonale/pulmonary hypertension per May 2016 echocardiogram. PLAN: We will wait for Radiology to review CT. In the mean time, we will agree with starting a Bumex drip. We will also start him on broad-spectrum antibiotics to cover for possible pneumonia. Further recommendations will be made pending Dr. Posada's evaluation. Thank you for the consult and opportunity to participate in the patient's care. RAND AVILEZ APRN FOR CRISTIAN POSADA MD PATIENT'S NAME: GALINA GARVEY [facility] AGE: 75 Y [address] ROOM: [place] [address] LOCATION: GPCU ADMIT DATE: 06/11/2016 Consultation DISCHARGE DATE: FAMILY PHYSICIAN: Conrad Russell MD ATTENDING PHYSICIAN: TUYET PETTY MRH/modl /[id number] d: 06/23/16 1932 t: 07/06/16 1615, CONSULTATION REPORT
--- NOTE | ~2016-06-11 | CON ---
PATIENT'S NAME: MARK ANTHONY GARVEY [facility] AGE: 75 Y [address] ROOM: [place] [id number] LOCATION: GICU ADMIT DATE: 06/11/2016 Consultation DISCHARGE DATE: 07/04/2016 FAMILY PHYSICIAN: Conrad Russell MD ATTENDING PHYSICIAN: Iván Saavedra DATE OF CONSULTATION: 06/30/2016 REFERRING PHYSICIAN: Erma Su MD PALLIATIVE MEDICINE CONSULT LOCATION: ICU Room 6211. REFERRING PROVIDER: Hector Pavon MD. CHIEF COMPLAINT: Palliative care referal for patient and family support. HISTORY OF PRESENT ILLNESS: The patient is a 75-year-old male, who was originally admitted back on June 11, 2016, with a 2-week history of dyspnea on exertion and fatigue. The patient's hospital course has been cristhian. He was initially placed on the progressive care unit and placed on BiPAP. Over the course of his hospital stay, his respiratory status has worsened, and he is currently in the intensive care unit on the ventilator with fentanyl and Versed for sedation. He is currently being treated for acute respiratory distress syndrome and does not seem to be improving. He is currently on 100% FiO2. It was weaned to 80 this morning. His creatinine and potassium continued to climb and temporary dialysis is being considered. The patient was intubated last after getting to meet his new grandson. Given his very guarded prognosis palliative care is being consulted for support and goals of care. PREVIOUS OPERATIONS: 1. Bilateral carpal tunnel. 2. Right rotator cuff repair. 3. 4-vessel CABG. 4. Left knee arthroscopy. 5. Left knee TKA. 6. Right knee TKA. PAST MEDICAL HISTORY: 1. Diabetes mellitus type 2. 2. Hypercholesteremia. 3. Hypertension. PATIENT'S NAME: MARK ANTHONY GARVEY [facility] AGE: 75 Y [address] ROOM: [address] [address] LOCATION: GICU ADMIT DATE: 06/11/2016 Consultation DISCHARGE DATE: 07/04/2016 FAMILY PHYSICIAN: Conrad Russell MD ATTENDING PHYSICIAN: Iván Saavedra 4. Depression. 5. History of subdural hematoma, status post craniotomy and evacuation. 6. Paroxysmal atrial fibrillation. MEDICATIONS: Please see current MAR. ALLERGIES: NO KNOWN ALLERGIES. SOCIAL HISTORY: The patient is and lives with his here in [place]. No history of tobacco or alcohol use. FAMILY HISTORY: His mother had breast cancer, and he has siblings with heart disease. REVIEW OF SYSTEMS: As per HPI, otherwise unobtainable as the patient is sedated and unresponsive in the intensive care unit. PHYSICAL EXAMINATION: VITAL SIGNS: Blood pressure 94/45, heart rate 65, temperature 97.9, respirations 35, O2 sat 93% on 80% FiO2. GENERAL: Reveals an obese, elderly white male, who is lying in the intensive care unit intubated and sedated. He does not appear to be in any acute distress. HEENT: Normocephalic, atraumatic. Pupils are equal and reactive to light. He does have an OG and an OT tube in place. CARDIOVASCULAR: Heart tones are irregular and bradycardic. LUNGS: Respirations are nonlabored on the ventilator. Lung sounds are slightly coarse bilaterally. Respirations are shallow. GASTROINTESTINAL: Abdomen is obese, soft, nondistended. Bowel sounds are present. GENITOURINARY: Beal catheter is intact with a small amount of dilan urine. MUSCULOSKELETAL: No significant joint deformities. Peripheral pulses are 1+ bilaterally. No clubbing or cyanosis. He does have 1 to 2+ generalized edema. SKIN: Warm and dry. No unusual lesions or rashes. NEUROLOGICAL: The patient is sedated. IMPRESSION AND PLAN: 1. Respiratory failure. 2. Emotional support to family. 3. Code status. The patient was made a DNR last night after a family PATIENT'S NAME: MARK ANTHONY GARVEY [facility] AGE: 75 Y [address] ROOM: [id number] [place] [address] LOCATION: [facility] ADMIT DATE: 06/11/2016 Consultation DISCHARGE DATE: 07/04/2016 FAMILY PHYSICIAN: Conrad Russell MD ATTENDING PHYSICIAN: Iván Saavedra. I had a long supportive visit with the patient's , Aria. During which time, she questions whether she is making a right decision as far as to start hemodialysis. I provided emotional support for Aria. I discussed with her her conversations with Mark Anthony over the course of his days prior to intubation. She reports that he had told her that he wanted to fight to see his new grandson grow up. I provided her reassurance that she was doing what he had asked her to do by continuing to push forward, but we did also visit about the severity of his illness and his guarded prognosis. Aria has a good understanding of what is going on. She does state that without dialysis, there is no hope of recovery but with hemodialysis, there is really a slight chance. We did discuss her concerns about her daughter who just had a baby last week and how she is coping with being a new mother as well as having a father who is critically ill. I did offer some counseling and support for her daughter as well. I provided emotional support and active listening. Family is thankful for the visit and for all the nurses and staff have done for her and Mark Anthony. At this point, goal is to continue to push forward with aggressive measures and revisit the situation daily. Total visit was 50 minutes. Greater than 50% of this time was spent providing counseling and education. Thank you for following me to assist the patient and family. ANNETTE TANG NP FOR CRISTIAN POSADA MD DLS/modl /[id number] CC: Hector Pavon MD d: 07/05/166 t: 07/06/16 1617, CONSULTATION REPORT
--- NOTE | ~2016-06-11 | ENPV ---
Vascular Lower Extremities DVT Study Procedure Demographics Patient Name GALINA GARVEY Date of Study 06/12/2016 Patient Number [id number] Gender Male Date of 1940 Age 75 Visit Number [id number] Height 70 Accession Number [id number] Weight 319.01 Referring Drew Martines MD Interpreting Amandeep Oconnor MD Physician Physician Physician Ordering Vaishnavi Jerome Spanish Lecturer Physician LUZ Truck Repair Service Estimator Nirav Wilkes [facility], T Conclusions Summary No evidence of deep vein thrombosis or superficial thrombophlebitis in the lower extremities bilaterally . Procedure Type of Study: Veins:Lower Extremities DVT Study, Venous Duplex Lower Extremity Bilateral. Indications for Study:Shortness of breath. Additional Indications:Elevated d-dimer Appropriate Use Criteria:9 Patient Status:Routine. Study Location:Inpatient Portable. Technical Quality:Adequate visualization. Velocities are measured in cm/s ; Diameters are measured in cm Right Lower Extremities DVT Study Measurements Right 2D and Doppler Measurements + + + + +------+------+ + !Location !Visualized!Compressibility!Thrombosis!Signal!Reflux!Reflux ! ! ! ! ! ! ! !(sec) ! + + + + +------+------+ + !GSV Thigh !Yes !Yes !None !Phasic! ! ! + + + + +------+------+ + !Common !Yes !Yes !None !Phasic! ! ! !Femoral ! ! ! ! ! ! ! + + + + +------+------+ + !Prox !Yes !Yes !None !Phasic! ! ! !Femoral ! ! ! ! ! ! ! + + + + +------+------+ + !Mid Femoral!Yes !Yes !None !Phasic! ! ! + + + + +------+------+ + !Dist !Yes !Yes !None !Phasic! ! ! !Femoral ! ! ! ! ! ! ! + + + + +------+------+ + !Popliteal !Yes !Yes !None !Phasic! ! ! + + + + +------+------+ + !Gastroc !Yes !Yes !None ! ! ! ! + + + + +------+------+ + !PTV !Yes !Yes !None ! ! ! ! + + + + +------+------+ + !Peroneal !Yes !Yes !None ! ! ! ! + + + + +------+------+ + Left Lower Extremities DVT Study Measurements Left 2D and Doppler Measurements + + + + +------+------+ + !Location !Visualized!Compressibility!Thrombosis!Signal!Reflux!Reflux ! ! ! ! ! ! ! !(sec) ! + + + + +------+------+ + !GSV Thigh !Yes !Yes !None !Phasic! ! ! + + + + +------+------+ + !Common !Yes !Yes !None !Phasic! ! ! !Femoral ! ! ! ! ! ! ! + + + + +------+------+ + !Prox !Yes !Yes !None !Phasic! ! ! !Femoral ! ! ! ! ! ! ! + + + + +------+------+ + !Mid Femoral!Yes !Yes !None !Phasic! ! ! + + + + +------+------+ + !Dist !Yes !Yes !None !Phasic! ! ! !Femoral ! ! ! ! ! ! ! + + + + +------+------+ + !Popliteal !Yes !Yes !None !Phasic! ! ! + + + + +------+------+ + !Gastroc !Yes !Yes !None ! ! ! ! + + + + +------+------+ + !PTV !Yes !Yes !None ! ! ! ! + + + + +------+------+ + !Peroneal !Yes !Yes !None ! ! ! ! + + + + +------+------+ + Signature dtt: PACO XAVIER dtd: 06/12/16 1645 Physician Self Ednaye
--- NOTE | ~2016-06-11 | ENPV ---
Vascular Lower Extremities DVT Study Procedure Demographics Patient Name GALINA GARVEY Date of Study 06/28/2016 Patient Number [id number] Gender Male Date of 1940 Age 75 Visit Number [id number] Height 70 Accession Number [id number] Weight 302.01 Referring Leah Phipps Interpreting Jamee King MD Physician Physician Physician Ordering Physician Leah Phipps Waterproofer Clock Repair Technician Sagar Hernadez T, [facility] Conclusions Summary There is deep vein thrombosis in the right posterior tibial vein(s). There is thrombus in the left gastrocnemius vein. Procedure Type of Study: Veins:Lower Extremities DVT Study, Venous Duplex Lower Extremity Bilateral. Indications for Study:Extended bedrest. Additional Indications:Immobility/Thrombocytopenia Allergies - No known allergies. Patient Status:Routine. Study Location:Inpatient Portable. Technical Quality:Adequate visualization. Risk Factors - The patient's risk factor(s) include: chronic lung disease, orally-treated diabetes mellitus, dyslipidemia, obesity, lack of physical activity, treated arterial hypertension and prior CABG. - The patient's last creatinine was 2.5 mg/dl. Velocities are measured in cm/s ; Diameters are measured in cm Right Lower Extremities DVT Study Measurements Right 2D and Doppler Measurements + + + + +------+------+ + !Location !Visualized!Compressibility!Thrombosis!Signal!Reflux!Reflux ! ! ! ! ! ! ! !(sec) ! + + + + +------+------+ + !GSV Thigh !Yes !Yes !None !Phasic!No ! ! + + + + +------+------+ + !Common !Yes !Yes !None !Phasic!No ! ! !Femoral ! ! ! ! ! ! ! + + + + +------+------+ + !Prox !Yes !Yes !None !Phasic!No ! ! !Femoral ! ! ! ! ! ! ! + + + + +------+------+ + !Mid Femoral!Yes !Yes !None !Phasic!No ! ! + + + + +------+------+ + !Dist !Yes !Yes !None !Phasic!No ! ! !Femoral ! ! ! ! ! ! ! + + + + +------+------+ + !Popliteal !Yes !Yes !None !Phasic!No ! ! + + + + +------+------+ + !Gastroc !Yes !Yes !None !Phasic!No ! ! + + + + +------+------+ + !PTV !Yes !No !Acute !Absent!No ! ! + + + + +------+------+ + !Peroneal !Yes !Yes !None !Phasic!No ! ! + + + + +------+------+ + Left Lower Extremities DVT Study Measurements Left 2D and Doppler Measurements + + + + +------+------+ + !Location !Visualized!Compressibility!Thrombosis!Signal!Reflux!Reflux ! ! ! ! ! ! ! !(sec) ! + + + + +------+------+ + !GSV Thigh !Yes !Yes !None !Phasic!No ! ! + + + + +------+------+ + !Common !Yes !Yes !None !Phasic!No ! ! !Femoral ! ! ! ! ! ! ! + + + + +------+------+ + !Prox !Yes !Yes !None !Phasic!No ! ! !Femoral ! ! ! ! ! ! ! + + + + +------+------+ + !Mid Femoral!Yes !Yes !None !Phasic!No ! ! + + + + +------+------+ + !Dist !Yes !Yes !None !Phasic!No ! ! !Femoral ! ! ! ! ! ! ! + + + + +------+------+ + !Popliteal !Yes !Yes !None !Phasic!No ! ! + + + + +------+------+ + !Gastroc !Yes !No !Acute !Absent!No ! ! + + + + +------+------+ + !PTV !Yes !Yes !None !Phasic!No ! ! + + + + +------+------+ + !Peroneal !Yes !Yes !None !Phasic!No ! ! + + + + +------+------+ + Signature dtt: Roland Mancuso dtd: 06/28/16 0740 Physician Self Edit
--- NOTE | ~2016-06-11 | DS ---
PATIENT'S NAME: GALINA GARVEY [facility] AGE: 75 Y [address] ROOM: [place] [address] LOCATION: GICU ADMIT DATE: 06/11/2016 Discharge Summary DISCHARGE DATE: 07/04/2016 FAMILY PHYSICIAN: Conrad Russell MD ATTENDING PHYSICIAN: Iván Saavedra SUMMARY PRIMARY DIAGNOSES: 1. Acute on chronic hypoxic respiratory failure. 2. Adult respiratory distress syndrome. 3. Pneumomediastinum. 4. Multiple organ failure. 5. Acute kidney injury. 6. Chronic kidney disease, stage IV. 7. Acute on chronic diastolic congestive heart failure. 8. Paroxysmal atrial fibrillation, not on long-term anticoagulation secondary to history of subdural hematoma. 9. Coronary artery disease, status post coronary artery bypass grafting. 10. Morbid obesity. 11. Acute lower extremity deep vein thrombosis. 12. Hyperkalemia. 13. Anemia of chronic kidney disease. 14. Diabetes mellitus type 2. 15. Thrombocytopenia, idiopathic. OPERATIONS AND PROCEDURES: Renal ultrasound was performed on 06/12/2016 demonstrating left renal cyst. CT scan of the chest performed on 06/12/2016 showed diffuse interstitial parenchymal opacities throughout the right lung and left lung base. V/Q scan performed on 06/12/2016 was low probability for PE. Renal ultrasound performed on 06/27/2016 showed no significant change from prior. CT scan of the chest performed on 07/03/2016 demonstrated large pneumomediastinum and interstitial emphysema as well as soft tissue gas throughout the neck and body wall. Pleural effusions noted bilaterally, greater on the left. Ascites and diffuse worsening lung disease compared to prior. HISTORY OF PRESENTING ILLNESS/REASON FOR ADMISSION: Please refer to the H and P dictated on 06/11/[address] Saavedra. HOSPITAL COURSE: The patient was admitted to the hospital as noted above with a presumptive diagnosis of acute on chronic hypoxic respiratory failure. Please see the hospital chart for specific details regarding this extended and complex hospital stay. PATIENT'S NAME: GALINA GARVEY [facility] AGE: 75 Y [address] ROOM: [place] [address] LOCATION: GICU ADMIT DATE: 06/11/2016 Discharge Summary DISCHARGE DATE: 07/04/2016 FAMILY PHYSICIAN: Conrad Russell MD ATTENDING PHYSICIAN: Iván Saavedra Briefly, the patient was initially admitted to progressive care. He required noninvasive positive pressure ventilation. Pulmonology and Cardiology were consulted. There was some concern for amiodarone pulmonary toxicity and the amiodarone was held. Ultimately, it was felt that his symptoms were likely related to pneumonia and progressive ARDS. His pulmonary status initially seemed to improve slightly with broad-spectrum antibiotic therapy and conservative care. Eventually, his clinical condition continued to deteriorate. He developed multiple organ failures. Nephrology was consulted and he eventually required hemodialysis. He did receive continued aggressive supportive care and broad- spectrum antibiotic therapy as well as aggressive attention to pulmonary hygiene. Unfortunately, his pulmonary status continued to deteriorate. He eventually required intubation and mechanical ventilation and was placed in the Intensive Care Unit. During his intensive care unit stay, he was also noted to have developed bilateral lower extremity DVTs. No anticoagulation was given because the clots were below the calf. Additionally, the patient was noted to have prior history of subdural hematoma and had previously been taken off anticoagulation therapy. He did remain hemodynamically stable. He received some physical therapy, occupational therapy, and blood sugars were managed with sliding scale insulin and remained generally well controlled. His clinical condition continued to deteriorate, however. He ultimately developed significant subcutaneous emphysema, which extended into the mediastinum. Please reference the CT scan results. After some discussion with the family and in consultation with Palliative Care, it was decided to pursue comfort cares and a compassionate extubation was requested. This was performed on 07/04/2016 at 1452 hours. At 1458 hours, the patient was noted to be without pulse or respirations. Family were present and expressed no concerns or questions. MD ANN-MARIE COONEY/surya /[id number] d: 07/15/16 0559 t: 07/18/16 1612, DISCHARGE SUMMARY
--- NOTE | ~2016-06-11 | ER ---
PATIENT'S NAME: GALINA GARVEY [facility] AGE: 75 Y [address] [id number] [address] LOCATION: [facility] ADMIT DATE: 06/11/2016 ER/Outpatient Report DISCHARGE DATE: FAMILY PHYSICIAN: Conrad Russell MD ATTENDING PHYSICIAN: TUYET PETTY Time of Arrival: Admission date and time documented on the medical record. Time of Evaluation: I saw the patient at 1955 hours. CHIEF COMPLAINT: Exertional dyspnea, shortness of breath, generalized weakness, and hypoxia with O2 saturations in the mid to low 70s at home on room air. HISTORY OF PRESENT ILLNESS: This patient is a 75-year-old male, who states that he has been dwindling over the past 2 weeks. He has had increasing shortness of breath. He has had worsening exertional dyspnea to the point that just a few steps causes him major shortness of breath and gets really dyspneic. Denies any chest pain or back pain. No abdominal pain, nausea, vomiting, diarrhea, urinary frequency or urgency, or dysuria. They did double his Lasix a couple days ago with no real increase in his urine output. No lightheadedness, dizziness, syncope, or near syncope. No headache or eyes, ears, nose, throat, neck, or spine pain. No recent cold, cough, flus, fever, chills, or sweats. No fall or trauma. Does have a history of congestive heart failure. Does have a history of chronic AFib. He is not on any anticoagulation because he has a fall risk. He has fallen in the past on anticoagulation and suffered a subdural hematoma. Does have coronary artery disease and oxg-sqtxtnz-uhwpbyaac diabetes mellitus. He is obese. Also, has dyslipidemia, hypercholesterolemia, and hypertension. Peripheral edema. No joint redness or pain. No skin eruptions or rash. Does have a history of hku-hkbphln-wztndghyq diabetes mellitus, no other endocrine problems. No neuro changes other than a past history of subdural hematoma. No psych issues. HOME MEDICATIONS: See attached medication list. ALLERGIES: NONE. SOCIAL HISTORY: Nonsmoker, nondrinker. SIGNIFICANT PAST MEDICAL HISTORY: Hypertension, hypercholesterolemia, dyslipidemia, atherosclerotic ischemic heart disease, coronary artery disease, qmg-nafownx-zxbxeznpl diabetes PATIENT'S NAME: GALINA GARVEY [facility] AGE: 75 Y [address] [id number] [address] LOCATION: [facility] ADMIT DATE: 06/11/2016 ER/Outpatient Report DISCHARGE DATE: FAMILY PHYSICIAN: Conrad Russell MD ATTENDING PHYSICIAN: TUYET PETTY mellitus type 2, exogenous obesity, chronic lymphocytic leukemia, degenerative joint disease, degenerative osteoarthritis, subdural hematoma, high-risk meds, chronic AFib, and congestive heart failure. OPERATIONS: Bilateral total knee arthroplasty, shoulder surgery with rotator cuff repair, cardiac catheterization with PTCA and stenting, and 5-vessel coronary bypass graft. REVIEW OF SYSTEMS: All systems reviewed by me are negative with the exception of those discussed in the history of present illness. PHYSICAL EXAMINATION: VITAL SIGNS: Temperature 98.9; pulse 100, irregular irregular; respirations 24; blood pressure 121/66; and O2 saturation on room air was 62%. Makenzie Coma Scale was 15. Did place him on oxygen, getting his O2 saturations in the low 90s. By history, he has ejection fracture of 46%. HEAD: Normocephalic. No abrasion, contusion, laceration, swelling of the scalp or face. EYES: Extraocular muscles intact. PERRL. Sclerae and conjunctivae clear, nonicteric. EARS: Clear TMs bilaterally. NOSE AND THROAT: Clear. Mucous membranes moist. Teeth, jaw intact. NECK: No nuchal rigidity. No thyromegaly or cervical adenopathy. Full range of motion. No tenderness. SPINE: Negative. LUNGS: Decreased breath sounds in the bases. Otherwise, good air flow. Some basilar rales. HEART: Irregular irregular. Pulses palpable. No chest wall or ribcage pain to palpation. ABDOMEN: Obese, soft, nondistended, nontender. Good bowel tones. No organomegaly or abnormal mass palpable. EXTREMITIES: With peripheral edema, mildly pitting. No cyanosis. No deformity. NEUROVASCULAR: Intact. SKIN: Clear. No skin eruptions or rash. IMAGING DATA: Chest x-ray shows congestive failure, increased vascular congestion, no acute infiltrate. We will review x-ray with radiologist. EKG showed atrial fibrillation. LABORATORY DATA: CMS was normal except for a low CO2 content of 21, elevated glucose 211, low PATIENT'S NAME: GALINA GARVEY [facility] AGE: 75 Y [address] [id number] [address] LOCATION: [facility] ADMIT DATE: 06/11/2016 ER/Outpatient Report DISCHARGE DATE: FAMILY PHYSICIAN: Conrad Russell MD ATTENDING PHYSICIAN: TUYET PETTY calcium of 8.3, elevated BUN of 48, elevated creatinine 2.3, low GFR 28, magnesium was 2.3, CPK was 54. Eacnt-eo-hquq cardiac enzymes were normal. Thyroid was normal. ProBNP was 10,801. Procalcitonin was 0.6. Lactate was 1.2. Arterial blood gases on 5 to 6 L of oxygen per nasal cannula showed a pH of 7.41, pCO2 of 37, pO2 of 67 with O2 saturation of 93%. White count was 12,200, 50 segs, 4 bands, 8 lymphs, 4 monos, 33 abnormal lymphocytes; hemoglobin was 10.6; hematocrit 33.9; platelet count was low at 120,000. PTT was 29, protime was 11.6, and INR 1.1. Clot tube was drawn. EMERGENCY DEPARTMENT COURSE: Did start a saline lock on the patient. Did give him Lasix 40 mg with not very much output. IMPRESSION: 1. Marked exertional dyspnea with shortness of breath. 2. Congestive heart failure. 3. Hypertension. 4. Dyslipidemia and hypercholesterolemia. 5. Atherosclerotic ischemic heart disease with coronary artery disease, status post 5-vessel coronary bypass and 2 stent placements. 6. Vtb-tssgvrz-liiifnxrv diabetes mellitus type 2. 7. Exogenous obesity. 8. History of chronic lymphocytic leukemia. 9. Degenerative joint disease with degenerative osteoarthritis. 10. High-risk medications. 11. Chronic atrial fibrillation. 12. Thrombocytopenia. 13. Chronic kidney disease. PLAN: Discussed the patient with Dr. Petty, hospitalist. We will admit the patient to PCU telemetry for further evaluation and treatment. Will need to be diuresed. Discussion ensued with the patient and his family regarding my findings and recommendations, they understand. MD KAMLA JERRY/modl /[id number] d: 06/12/16 0222 t: 06/14/16 1823, OUTPATIENT REPORT
--- NOTE | ~2016-06-11 | ENPV ---
Vascular Lower Extremities DVT Study Procedure Demographics Patient Name GALINA GARVEY Date of Study 07/01/2016 Patient Number [id number] Gender Male Date of 1940 Age 75 Visit Number [id number] Height 70 Accession Number [id number] Weight 302.01 Referring Shaneka Daniels MD Interpreting Amandeep Oconnor MD Physician Physician Physician Ordering Shaneka Daniels Asset Recovery Specialist Physician Culinary Specialist Estrellita Bar, RT,RVT,RDCS Conclusions Summary Bilateral chronic calf vein DVTs Procedure Type of Study: Veins:Lower Extremities DVT Study, Venous Duplex Lower Extremity Bilateral. Appropriate Use Criteria:7 Allergies - No known allergies. Patient Status:Routine. Study Location:Inpatient Portable. Technical Quality:Adequate visualization. - Preliminary reported to:CARLO Velez. Risk Factors - The patient's risk factor(s) include: chronic lung disease, orally-treated diabetes mellitus, dyslipidemia, obesity, lack of physical activity, treated arterial hypertension and prior CABG. - The patient's last creatinine was 2.5 mg/dl. Velocities are measured in cm/s ; Diameters are measured in cm Right Lower Extremities DVT Study Measurements Right 2D and Doppler Measurements + + + + +------+------+ + !Location !Visualized!Compressibility!Thrombosis!Signal!Reflux!Reflux ! ! ! ! ! ! ! !(sec) ! + + + + +------+------+ + !GSV Thigh !Yes !Yes !None !Phasic!No ! ! + + + + +------+------+ + !Common !Yes !Yes !None !Phasic!No ! ! !Femoral ! ! ! ! ! ! ! + + + + +------+------+ + !Prox !Yes !Yes !None !Phasic!No ! ! !Femoral ! ! ! ! ! ! ! + + + + +------+------+ + !Mid Femoral!Yes !Yes !None !Phasic!No ! ! + + + + +------+------+ + !Dist !Yes !Yes !None !Phasic!No ! ! !Femoral ! ! ! ! ! ! ! + + + + +------+------+ + !Popliteal !Yes !Yes !None !Phasic!No ! ! + + + + +------+------+ + !Gastroc !Yes !Yes !None !Phasic!No ! ! + + + + +------+------+ + !PTV !Yes !No !Chronic !Absent!No ! ! + + + + +------+------+ + !Peroneal !Yes !Yes !None !Phasic!No ! ! + + + + +------+------+ + Left Lower Extremities DVT Study Measurements Left 2D and Doppler Measurements + + + + +------+------+ + !Location !Visualized!Compressibility!Thrombosis!Signal!Reflux!Reflux ! ! ! ! ! ! ! !(sec) ! + + + + +------+------+ + !GSV Thigh !Yes !Yes !None !Phasic!No ! ! + + + + +------+------+ + !Common !Yes !Yes !None !Phasic!No ! ! !Femoral ! ! ! ! ! ! ! + + + + +------+------+ + !Prox !Yes !Yes !None !Phasic!No ! ! !Femoral ! ! ! ! ! ! ! + + + + +------+------+ + !Mid Femoral!Yes !Yes !None !Phasic!No ! ! + + + + +------+------+ + !Dist !Yes !Yes !None !Phasic!No ! ! !Femoral ! ! ! ! ! ! ! + + + + +------+------+ + !Popliteal !Yes !Yes !None !Phasic!No ! ! + + + + +------+------+ + !Gastroc !Yes !No !Chronic !Absent!No ! ! + + + + +------+------+ + !PTV !Yes !Yes !None !Phasic!No ! ! + + + + +------+------+ + !Peroneal !Yes !Yes !None !Phasic!No ! ! + + + + +------+------+ + Impressions Right Impression DVT remains in right calf veins. Other deep veins appear patent. Left Impression Possible DVT in left gastroc vein. All other veins appear patent. Signature dtt: dtd: 07/01/16 0957 Physician Self Edit
[~2016-06-11 18:44] MED LIST: ACTOS30 MG PO; ASPIRIN EC81 MG PO; CORDARONE,PACE200 MG PO; COREG6.25 MG PO; GLUCOPHAGE500 MG PO; GLUCOPHAGE850 MG PO; LASIX20 MG PO; LIPITOR80 MG PO; MULTIVITAMINS1 EAC1 PO; NORVASC10 MG PO; PROTONIX40 MG PO; ULTRAM50 MG PO; ZESTRIL40 MG PO; ZOLOFT100 MG PO
[2016-06-11 19:15] LABS: HEMATOCRIT 33.9 % (37.0-53.0); HEMOGLOBIN 10.6 g/dL (11.0-16.0); MCH 34.4 pg (27.0-34.0); MCHC 31.3 gm/dL (32.0-36.5); MCV 110.1 fl (83.0-98.0); MPV 10.4 fl (9.4-12.4); PLATELET COUNT 120 K/uL (150-450); RBC 3.08 M/uL (3.50-5.50); RDW-CV 15.7 % (11.9-14.6); WBC 12.2 K/uL (4.0-11.0)
[2016-06-11 19:22] LABS: INR - (THERAPEUTIC) 1.1 (0.9-1.1); PROTIME 11.6 SECONDS (9.6-11.1); PTT 29 SECONDS (25-32)
[2016-06-11 19:26] LABS: BICARBONATE 23.5 mmol/L (18.0-23.0); LACTATE 1.2 mEq/L (0.50-1.60); PCO2 37 mmHg (35-45); PO2 67 mmHg (80-90)
[2016-06-11 19:39] LABS: ALBUMIN 2.7 gm/dL (3.5-5.0); ALK PHOS 114 IU/L (33-138); ALT 38 IU/L (12-78); ANION GAP 18.9 (10.0-19.0); AST 49 IU/L (10-40); BLOOD UREA NITROGEN 48 mg/dL (6-24); CALCIUM 8.3 mg/dL (8.5-10.5); CHLORIDE 105 mMol/L (96-110); CO2 21 mMol/L (22-32); CPK 54 IU/L (35-332); CREATININE 2.3 mg/dL (0.6-1.3); ESTIMATED GFR (MDRD EQUATION) 28; MAGNESIUM 2.3 mg/dL (1.3-2.6); POTASSIUM 3.9 mMol/L (3.7-5.1); SODIUM 141 mMol/L (135-145); TOTAL BILIRUBIN 1.2 mg/dL (0.0-1.5); TOTAL PROTEIN 6.1 g/dL (6.0-8.4)
[2016-06-11 20:23] LABS: LYMPHOCYTE % 8 %
[2016-06-11 20:24] LABS: ABSOLUTE NEUTROPHIL CT (ANC) 6.6 K/uL (1.4-9.0); BANDED NEUTROPHIL # 0.5 K/uL (0.0-0.1); BANDED NEUTROPHILS % 4 %; MONOCYTE # 0.5 K/uL (0.0-1.0); SEGMENTED NEUTROPHIL # 6.1 K/uL (1.4-9.0); SEGMENTED NEUTROPHIL % 50 %
[2016-06-11] MEDS ORDERED: ENTRESTO 24 MG1 EACH PO (22:46)
[2016-06-11] MEDS ORDERED: LASIX20 MG PO (22:47)
[2016-06-12 04:30] LABS: HEMATOCRIT 30.3 % (37.0-53.0); HEMOGLOBIN 9.6 g/dL (11.0-16.0); MCH 34.8 pg (27.0-34.0); MCHC 31.7 gm/dL (32.0-36.5); MCV 109.8 fl (83.0-98.0); MPV 10.9 fl (9.4-12.4); RBC 2.76 M/uL (3.50-5.50); RDW-CV 15.7 % (11.9-14.6); WBC 9.6 K/uL (4.0-11.0)
[2016-06-12 04:53] LABS: ANION GAP 15.7 (10.0-19.0); CHLORIDE 108 mMol/L (96-110); CO2 24 mMol/L (22-32); CPK 45 IU/L (35-332); CREATININE 2.3 mg/dL (0.6-1.3); ESTIMATED GFR (MDRD EQUATION) 28; MAGNESIUM 2.1 mg/dL (1.3-2.6); PHOSPHORUS 3.6 mg/dL (2.5-4.9); POTASSIUM 3.7 mMol/L (3.7-5.1); SODIUM 144 mMol/L (135-145)
[2016-06-12 04:55] LABS: BLOOD UREA NITROGEN 54 mg/dL (6-24)
--- NOTE | 2016-06-12 05:15 | NUR ---
Significant Event: pATIENT ARRIVED AT [facility] ED DT INCREADED SHORTNESS OF BREATH OVER LAST WEEK OV SO. DENIES CHESTPAIN. PATIENT ALERT AND ORIENTED X3, WAS GIVEN 40MG LASIX IN THE ED. PATIENT DENIES MEMORY CHANGES. VERY COOPERATIVE WITH CARES. D DIMER ELEVATED, VQ SCAN ORDERED HOWEVER CAN NOT BE DOME UNTIL THIS AM UNTIL NUC MED HAS NUC MEDICINES. PATIENT DENIES QUESTIONS AND CONCERNS. CARDIO AND NEPHRO CONSULTS IN AM. KIDNEY US THIS AM. Follow up: CONTINUE TO MONITOR PER POC
[2016-06-12 05:24] LABS: BILIRUBIN URINE NEGATIVE (NEGATIVE); BLOOD URINE NEGATIVE /UL (NEGATIVE); GLUCOSE URINE NEGATIVE (NEGATIVE); KETONE URINE NEGATIVE (NEGATIVE); LEUKOCYTES URINE NEGATIVE /UL (NEGATIVE); NITRITE URINE NEGATIVE (NEGATIVE); PROTEIN URINE NEGATIVE (NEGATIVE); SPEC GRAVITY URINE 1.015 (1.003-1.035); UROBILINOGEN URINE 1 mg/dL (NORMAL)
[2016-06-12 05:32] LABS: COLOR URINE YELLOW (YELLOW); TURBIDITY URINE CLEAR (CLEAR)
--- NOTE | 2016-06-12 19:50 | NUR ---
Significant Event:Patient up to commode x 2 with small loose mushy stool. Abd soft with active bowel tones. C-diff negative, Beal intact and patent with dark urine. Bumex 4mg given and IV Bumex gtt started. Total of 1000ml out in 12 hrs. A/O x3. Drowsy today. Denies n/t. LS clear diminished to expiratory wheezes. O2 at 6L per nc. Sats 86-91%. desaturates with activity and takes several minutes to regain sats of 88%. Nasal wash completed and negative. Need sputum culture yet. Family at bedside. Patient had CT, VQ SCAN, DOPPLER STUDY AND ECHO TODAY.
--- NOTE | 2016-06-12 19:58 | NUR ---
Patient up to commode x 2 with small loose mushy stool. Abd soft with active bowel tones. C-diff negative, Beal intact and patent with dark urine. Bumex 4mg given and IV Bumex gtt started. Total of 1000ml out in 12 hrs. A/O x3. Drowsy today. Denies n/t. LS clear diminished to expiratory wheezes. O2 at 6L per nc. Sats 86-91%. desaturates with activity and takes several minutes to regain sats of 88%. Nasal wash completed and negative. Need sputum culture yet. Family at bedside. Patient had CT, VQ SCAN, DOPPLER STUDY AND ECHO TODAY. TRANSFER TO ICU FOR BIPAP.
--- NOTE | 2016-06-12 20:10 | NUR ---
PT ADMITTED TO ICU 6214 AT 1924 ON 6L NC, ZYVOX AND BUMEX INFUSING THROUGH PIV. BUMEX GTT STOPPED PER MD ORDER. RT NOTIFIED OF BIPAP ORDER AND PATIENT SET UP ON BIPAP. O2 SATS INCREASED FROM MID 80S TO MID-HIGH 90S WITHIN MINUTES. PT IMMEDIATELY APPEARS LESS RESTLESS, LESS TACHYPNIC, AND HAS BETTER COLOR. PT A/O X3, NO COMPLAINTS OF PAIN, MOVES ALL EXTREMITIES WITH GOOD STRENGTH. HR 100S-110S UPON ARRIVAL, AFTER BP PLACED, DROPPED TO MID 90S. AFEBRILE, EDEMA PRESENT IN LOWER EXTREMITIES, PULSES 2/03/28. LUNGS WITH EXPIRATORY WHEEZES THROUGHOUT AND CRACKLES IN THE BASES, MORE ON L) THAN R). ELIZONDO CATHETER IN PLACE. SEE SKIN ASSESSMENT SHEET FOR INTEGUMENTARY. PIV X1 IN PLACE, SECOND PIV STARTED. MARY ELLEN SALAZAR RN
--- NOTE | 2016-06-13 02:56 | NUR ---
Pt transferred from PCU at beginning of shift on 6LPM O2 via NC. Orders for BiPAP to keep Vts 450-550ml and SpO2 >91%. Started BiPAP at 14/6 and have titrated down to 10/6 with Vts still in the 900s. FiO2 titrated to 40%, SpO2 92-94%. Pt does desat with activity and movement in bed. BrSs I/E wheezes, receiving nebulizers QID. Continue per plan of care.
--- NOTE | 2016-06-13 06:54 | NUR ---
Significant Event: Pt was transfered to ICU from PCU this shift. He is alert and oriented x3. Moves all extremities spontaneously and to command. Some Generalized weakness. Pupils are equal and reactive. Pt has been on the BiPap since transfering, to keep sats above 91%. Beal in place with good urine output. No BM this shift. [address] Follow up: Continue to monitor per current plan of care.
[2016-06-13 08:01] LABS: ANION GAP 17.5 (10.0-19.0); CALCIUM 8.2 mg/dL (8.5-10.5); CREATININE 2.5 mg/dL (0.6-1.3); MAGNESIUM 2.2 mg/dL (1.3-2.6); PHOSPHORUS 4.8 mg/dL (2.5-4.9); POTASSIUM 3.5 mMol/L (3.7-5.1)
[2016-06-13 10:46] LABS: BASOPHIL % 0.1 %; HEMATOCRIT 30.7 % (37.0-53.0); HEMOGLOBIN 9.7 g/dL (11.0-16.0); IMMATURE GRANULOCYTE % 0.5 %; LYMPHOCYTE # 2.3 K/uL (0.8-4.0); LYMPHOCYTE % 30.6 %; MCH 34.6 pg (27.0-34.0); MCHC 31.6 gm/dL (32.0-36.5); MCV 109.6 fl (83.0-98.0); MONOCYTE # 0.2 K/uL (0.0-1.0); MONOCYTE % 2.7 %; MPV 11.3 fl (9.4-12.4); NEUTROPHIL # (ANC) 4.9 K/uL (1.4-9.0); NEUTROPHIL % 66.1 %; NRBC % 0.5 /100WBC (0-0.00); RDW-CV 15.7 % (11.9-14.6); WBC 7.4 K/uL (4.0-11.0)
[2016-06-13 10:47] LABS: PLATELET COUNT 70 K/uL (150-450)
--- NOTE | 2016-06-13 17:57 | NUR ---
Significant Event: Patient is alert and oriented X3. He has tolerated 6L O2 per nasal canula for most of the day. He will be back on Bipap tonight. He had a chest xray done today to look at fluid overload. A right side heart cath a was done after. The fluid overload is getting better and they are looking to see if it is Amiodarone toxicity. Digoxin was started for heart rates. Albumin will be given X3 for blood pressure and third spacing. Patient ate dinner up in the chair this evening and is tolerating well. Urine output increased throughout the day. Follow up: Continue to monitor
--- NOTE | 2016-06-14 04:37 | NUR ---
Significant Event: Patient AOx3. Generalized weakness noted, full lift utilized for transfer from chair to bed. Afib 80-100s. BP stable. Edema noted. Currently on 40%bipap tolerating well. Lung sounds clear and diminished throughout ,with occasional expiratory wheezes. Bowel sounds active, bm x1 this shift. Beal intact, adequate UOP. No new or worsening skin issues. Afebrile. PIV x1 sl'd with intermittent abx. Follow up:Continue.
[2016-06-14 05:24] LABS: BASOPHIL % 0.1 %; HEMATOCRIT 28.6 % (37.0-53.0); HEMOGLOBIN 9.1 g/dL (11.0-16.0); IMMATURE GRANULOCYTE # 0.1 K/uL (0.0-0.3); LYMPHOCYTE # 2.4 K/uL (0.8-4.0); LYMPHOCYTE % 30.8 %; MCH 34.7 pg (27.0-34.0); MCHC 31.8 gm/dL (32.0-36.5); MCV 109.2 fl (83.0-98.0); MONOCYTE # 0.2 K/uL (0.0-1.0); MONOCYTE % 2.5 %; MPV 11.7 fl (9.4-12.4); NEUTROPHIL # (ANC) 5.1 K/uL (1.4-9.0); NEUTROPHIL % 65.6 %; NRBC % 0.3 /100WBC (0-0.00); PLATELET COUNT 71 K/uL (150-450); RBC 2.62 M/uL (3.50-5.50); RDW-CV 15.6 % (11.9-14.6); WBC 7.7 K/uL (4.0-11.0)
[2016-06-14 05:49] LABS: ANION GAP 16.8 (10.0-19.0); CALCIUM 8.5 mg/dL (8.5-10.5); CREATININE 2.7 mg/dL (0.6-1.3); POTASSIUM 3.8 mMol/L (3.7-5.1)
--- NOTE | 2016-06-14 15:10 | NUR ---
Introduced self and role of care management to pt and Aria. They live here in town and pt since admission has progressively has gotten weaker. She states at some point she thinks he will need acute rehab of some sort. He was on our GIRP a few years agao have a subdural. I did tell her TCU will be closing or other options would be out in the community. She understands and will continue to follow and see how pt does.
--- NOTE | 2016-06-14 17:00 | NUR ---
Significant Event:RESP: Clearing lung sounds as shift has progressed. Up to chair on hiflo nasal cannula 65%. SaO2 90-95%. CARDIO: Afib HR 80s. Afebrile. No edema. GI/: 2 soft, loose to formed bowel movements. Input 1473 mL, outpup 1150 mL.
--- NOTE | 2016-06-15 04:33 | NUR ---
Significant events: Pt A/Ox3. VSS. No complaints of pain. Hi-flow at 60-65% while awake, BIPAP while sleeping. Repositions with full lift and self. IV antibiotics. ACHS accucheck. Slept most of shift. Beal in place.
[2016-06-15 04:37] LABS: BASOPHIL % 0.2 %; HEMOGLOBIN 10.3 g/dL (11.0-16.0); IMMATURE GRANULOCYTE # 0.1 K/uL (0.0-0.3); LYMPHOCYTE # 3.4 K/uL (0.8-4.0); LYMPHOCYTE % 31.2 %; MCH 35.2 pg (27.0-34.0); MCHC 32.2 gm/dL (32.0-36.5); MCV 109.2 fl (83.0-98.0); MONOCYTE # 0.3 K/uL (0.0-1.0); MONOCYTE % 2.7 %; MPV 11.5 fl (9.4-12.4); NEUTROPHIL # (ANC) 7.1 K/uL (1.4-9.0); NEUTROPHIL % 64.9 %; NRBC % 0.2 /100WBC (0-0.00); PLATELET COUNT 81 K/uL (150-450); RBC 2.93 M/uL (3.50-5.50); RDW-CV 15.7 % (11.9-14.6)
[2016-06-15 06:16] LABS: ALBUMIN 2.5 gm/dL (3.5-5.0); ANION GAP 12.8 (10.0-19.0); CALCIUM 8.4 mg/dL (8.5-10.5); CREATININE 2.5 mg/dL (0.6-1.3); PHOSPHORUS 4.3 mg/dL (2.5-4.9); POTASSIUM 3.8 mMol/L (3.7-5.1)
--- NOTE | 2016-06-15 11:12 | NUR ---
Diabetes Consult: Patient with Type II diabetes and A1C of 6.7%. Blood sugars are ranging 184-318. The patient is receiving solumedrol IV twice daily, which have contributed to his hyperglycemia. He is being treated with Novolog aggressive correction and Levemir 8 units was started yesterday at noon. Will continue to trend blood sugars but anticipate he will need an increase in his Levemir to cover increased basal needs.
--- NOTE | 2016-06-15 13:35 | NUR ---
A-SCREENED D/T LOS HT: 70 IN WT: 145.3 KG BMI: 45.9 LABS: NA 142, K+ 3.8, GLU 192, BUN 83, WAREHOUSE LOGISTICS COORDINATOR 2.5, ALB 2.5, CRP 11.80 MEDS: LIPITOR, PROTONIX, LEVEMIR, BUMEX, LEVAQUIN, NOVOLOG, MERREM IV, SOLUMEDROL, ZYVOX DIET RX: CARDIAC DIET W/1200 ML FLUID RESTRICTION. PO INTAKE 75-100% EST NUTR NEEDS: 2705-8696 KCALS (15-20 KCALS/KG) 112-150 GM PROTEIN (1.5-2.0 GM/KG IBW) FLUID PER MD D-NOT AT NUTRITION RISK; NO NUTRITION DX IDENTIFIED I-PT MAY BENEFIT FROM A CONSISTENT CARB DIET M/E-WILL ASSIST AT NEEDED
--- NOTE | 2016-06-15 13:41 | NUR ---
PT'S CURRENT DIET RX IS CARDIAC W/1200 ML FLUID RESTRICTION. PT IS A DIABETIC AND WOULD BENEFIT FROM A CONSISTENT CARB DIET.
--- NOTE | 2016-06-15 17:25 | NUR ---
Significant Event: Alert and oriented X 3. HiFlo at 72.6% throughout the shift. Bipap at night. SBP 120's and 140's. HR 80's and 90's. Peripheral IV to left wrist, flushes well with good blood return, saline locked. ACHS accu checks 184, 216 and 291. 2 assist to commode. 2 x-large bowel movements loose and mushy. Daily weights ordered, standing scale. 1200 fluid restriction, 710 ml used during this shift. Beal intact with 1675 ml out this shift. Pleasant and cooperative with cares. Follow up:
[2016-06-16 05:39] LABS: BASOPHIL % 0.1 %; HEMOGLOBIN 10.6 g/dL (11.0-16.0); IMMATURE GRANULOCYTE # 0.1 K/uL (0.0-0.3); LYMPHOCYTE % 33.6 %; MCHC 32.1 gm/dL (32.0-36.5); MCV 108.9 fl (83.0-98.0); MONOCYTE # 0.3 K/uL (0.0-1.0); MONOCYTE % 2.9 %; MPV 11.1 fl (9.4-12.4); NEUTROPHIL # (ANC) 7.3 K/uL (1.4-9.0); NEUTROPHIL % 62.4 %; NRBC % 0 /100WBC (0-0.00); PLATELET COUNT 75 K/uL (150-450); RBC 3.03 M/uL (3.50-5.50); RDW-CV 15.9 % (11.9-14.6); WBC 11.7 K/uL (4.0-11.0)
[2016-06-16 05:56] LABS: ALBUMIN 2.5 gm/dL (3.5-5.0); ANION GAP 14.1 (10.0-19.0); CALCIUM 8.4 mg/dL (8.5-10.5); CREATININE 2.5 mg/dL (0.6-1.3); POTASSIUM 4.1 mMol/L (3.7-5.1)
--- NOTE | 2016-06-16 15:27 | NUR ---
Significant Event: pt up to chair and commode, went for xray this am on hiflo. Chest improved some. 02 90-99%hiflo. Therapy helps pt bath today. No c/o pain. Pt with him. Standing wt done. BUmex given. Follow up:
--- NOTE | 2016-06-17 05:51 | NUR ---
Significant Event: VSS. HIFLOW DURING DAY/BIPAP AT NIGHT PER RT. PT DENIES PAIN. UP TO BSC AND BACK TO BED.IV ABX GIVEN. ELIZONDO INTACT. Follow up:CONT WITH PLAN OF CARE
[2016-06-17 10:20] LABS: ALBUMIN 2.5 gm/dL (3.5-5.0); CALCIUM 8.7 mg/dL (8.5-10.5); CREATININE 2.7 mg/dL (0.6-1.3)
[2016-06-17 10:24] LABS: ANION GAP 17.6 (10.0-19.0); POTASSIUM 4.6 mMol/L (3.7-5.1)
[2016-06-17 11:09] LABS: HEMATOCRIT 34.7 % (37.0-53.0); HEMOGLOBIN 11.1 g/dL (11.0-16.0); MCH 34.9 pg (27.0-34.0); MCV 109.1 fl (83.0-98.0); PLATELET COUNT 82 K/uL (150-450); RBC 3.18 M/uL (3.50-5.50); RDW-CV 15.6 % (11.9-14.6)
[2016-06-17 11:14] LABS: WBC 17.7 K/uL (4.0-11.0)
--- NOTE | 2016-06-17 15:17 | NUR ---
Supportive visit with pt and Aria today. Pt still remains on high flow oxygen. She states the goal or hope is acute rehab but will have to see how he does or she is aware other options that are out in the community. WIll continue to follow.
[2016-06-17 15:58] LABS: BANDED NEUTROPHIL # 0.7 K/uL (0.0-0.1); BANDED NEUTROPHILS % 4 %; MONOCYTE # 0.5 K/uL (0.0-1.0)
[2016-06-17 15:59] LABS: ABSOLUTE NEUTROPHIL CT (ANC) 6.6 K/uL (1.4-9.0); LYMPHOCYTE # 10.6 K/uL (0.8-4.0); LYMPHOCYTE % 18 %; SEGMENTED NEUTROPHIL # 5.8 K/uL (1.4-9.0); SEGMENTED NEUTROPHIL % 33 %
--- NOTE | 2016-06-17 17:49 | NUR ---
Significant Event: pt had therapy today. Echo done. Bumex to be held but did get am dose, albumin to be given x3. Creat 2.7. Good UOP. No c/o pain. Hiflo on until pt nap this afternoon then bipap. Pt her alittle today. Mod.BM. Follow up:
[2016-06-18 03:35] LABS: BASOPHIL % 0.1 %; EOSINOPHIL % 0.1 %; HEMATOCRIT 30.5 % (37.0-53.0); HEMOGLOBIN 9.7 g/dL (11.0-16.0); IMMATURE GRANULOCYTE # 0.1 K/uL (0.0-0.3); IMMATURE GRANULOCYTE % 0.8 %; LYMPHOCYTE # 3.7 K/uL (0.8-4.0); LYMPHOCYTE % 30.7 %; MCH 34.6 pg (27.0-34.0); MCHC 31.8 gm/dL (32.0-36.5); MCV 108.9 fl (83.0-98.0); MONOCYTE # 0.3 K/uL (0.0-1.0); MONOCYTE % 2.2 %; MPV 11.3 fl (9.4-12.4); NEUTROPHIL # (ANC) 7.8 K/uL (1.4-9.0); NEUTROPHIL % 66.1 %; NRBC % 0 /100WBC (0-0.00); PLATELET COUNT 70 K/uL (150-450); RDW-CV 15.9 % (11.9-14.6); WBC 11.9 K/uL (4.0-11.0)
[2016-06-18 03:46] LABS: ANION GAP 13.4 (10.0-19.0); CALCIUM 8.8 mg/dL (8.5-10.5); CREATININE 2.3 mg/dL (0.6-1.3); PHOSPHORUS 4.1 mg/dL (2.5-4.9); POTASSIUM 4.4 mMol/L (3.7-5.1)
--- NOTE | 2016-06-18 04:39 | NUR ---
Pt a/o. vss, afebrile. remains on bipap or 80-100% fio2/50L high flow. Has zero reserve for movement. Beal in place for i/o-1650 out. received 2 doses of albumin this shift. All iv abx except levaquin d/c'd. Creatinine better this am 2.3. FSBS still trending high. con't on ivp steroids. Plan: con't to attempt to wean o2.
--- NOTE | 2016-06-18 12:37 | NUR ---
I did place on TCU and GIRP list.
--- NOTE | 2016-06-18 19:38 | NUR ---
Significant Event: A/O X 3. DENIES PAIN. C/O MORE SHORTNESS OF BREATH TODAY. BUMEX IV GIVEN PER ORDER. CRET 2.3. AFEBRILE. HR A-FIB, RATES 70-80'S. PT/OT WORK WITH PATIENT. SBP 123-156. GOOD APPETITE. HAVE TO MONITER FLUID RESTRICT CLOSELY, PATIENT REALLY LIKES TO DRINK. CONT. ON HI-FLOW OXYGEN AT 50%. LUNGS CLEARER THIS AFTERNOON POST BUMEX. TO VISIT. AN OCCASIONAL COUGH, WHITE THIN PHELGM. CONT. ON SOLU-MEDROL. Follow up: CONT. TO MONITER RESP. STATUS.
[2016-06-19 05:09] LABS: BASOPHIL % 0.1 %; EOSINOPHIL % 0.1 %; HEMATOCRIT 32.4 % (37.0-53.0); HEMOGLOBIN 10.5 g/dL (11.0-16.0); IMMATURE GRANULOCYTE # 0.1 K/uL (0.0-0.3); IMMATURE GRANULOCYTE % 0.9 %; LYMPHOCYTE # 3.1 K/uL (0.8-4.0); MCH 34.8 pg (27.0-34.0); MCHC 32.4 gm/dL (32.0-36.5); MCV 107.3 fl (83.0-98.0); MONOCYTE # 0.4 K/uL (0.0-1.0); MONOCYTE % 3.4 %; MPV 10.7 fl (9.4-12.4); NEUTROPHIL # (ANC) 8.3 K/uL (1.4-9.0); NEUTROPHIL % 69.5 %; NRBC % 0 /100WBC (0-0.00); PLATELET COUNT 50 K/uL (150-450); RBC 3.02 M/uL (3.50-5.50); RDW-CV 15.7 % (11.9-14.6)
--- NOTE | 2016-06-19 05:14 | NUR ---
Significant Event: PATIENT IS A/0 X3 BUT FORGETFUL. VSS. HR 70-80'S. SBP 140-170'S. AFEBRILE. 02 SATS IN MID 90'S ON 50% HIFLOW DURING DAY AND 60% BIPAP AT NIGHT. LUNGS VARRIED FROM WHEEZY/SLIGHT CRACKLES IN BASES TO CLEAR TO CLEAR/DIM THROUGHOUT. UP WITH 1-2 ASSIST WALKER/GB. BOWELS ACTIVE. BM X1 PER BEDSIDE COMMODE. ELIZONDO INTACT WITH 1850 UOP. CONTINUES TO HAVE REDNESS TO BOTTOM. PATIENT TURNED Q2H. IV TO LEFT WRIST SL. HAS 1+ EDEMA TO LOWER EXTREMITIES. ON ACHS ACCUCHEKCS. Follow up: CONTINUE TO MONITOR PER PLAN OF CARE.
[2016-06-19 05:26] LABS: ALBUMIN 3.1 gm/dL (3.5-5.0); ANION GAP 12.4 (10.0-19.0); CALCIUM 8.6 mg/dL (8.5-10.5); CREATININE 1.9 mg/dL (0.6-1.3); PHOSPHORUS 3.9 mg/dL (2.5-4.9); POTASSIUM 4.4 mMol/L (3.7-5.1)
--- NOTE | 2016-06-19 17:51 | NUR ---
Significant Event: A/O X 3. AMBULATE IN ROOM. UP IN CHAIR. FEELS BETTER TODAY. CONT. ON HIFLOW. AFEBRILE. HR A-FIB, RATES 70-80'S. SBP 160-170'S. IV BUMEX TODAY. CRET 1.9 GFR 35. DIGOXIN LEVEL WNL. Follow up: CONT. TO MONITER RESP. STATUS AND RENAL STATUS.
--- NOTE | 2016-06-20 05:15 | NUR ---
Significant Event: PATIENT IS A/O X3 BUT FORGETFUL. VSS. HR 70-80'S. SBP 150-170'S. AFEBRILE. 02 SATS IN MID 90'S ON 70-80% BIPAP AT NIGHT AND 50-70% HIFLOW NC DURING DAY. LUNGS VARRIED FROM WHEEZES THROUGHOUT TO CLEAR/DIM. UP WITH 1A WITH WALKER/GB TO BEDSIDE COMMODE. HAD 2 LARGE BM'S. ELIZONDO INTACT WITH 1575 UOP. CONTINUES TO HAVE REDNESS TO BOTTOM. ALOE APPLIED AND PATIENT TURNED Q2H. IV TO LEFT WRIST SL. ON IV ABX. ACHS ACCUCHECKS. Follow up: CONTINUE TO MONITOR PER PLAN OF CARE.
[2016-06-20 06:56] LABS: EOSINOPHIL % 0.1 %; HEMATOCRIT 32.3 % (37.0-53.0); HEMOGLOBIN 10.3 g/dL (11.0-16.0); IMMATURE GRANULOCYTE # 0.1 K/uL (0.0-0.3); IMMATURE GRANULOCYTE % 0.6 %; LYMPHOCYTE # 2.8 K/uL (0.8-4.0); LYMPHOCYTE % 29.9 %; MCHC 31.9 gm/dL (32.0-36.5); MCV 109.9 fl (83.0-98.0); MONOCYTE # 0.4 K/uL (0.0-1.0); MPV 11.3 fl (9.4-12.4); NEUTROPHIL # (ANC) 6.1 K/uL (1.4-9.0); NEUTROPHIL % 65.4 %; NRBC % 0 /100WBC (0-0.00); RBC 2.94 M/uL (3.50-5.50); RDW-CV 15.7 % (11.9-14.6); WBC 9.3 K/uL (4.0-11.0)
[2016-06-20 06:59] LABS: PLATELET COUNT 51 K/uL (150-450)
[2016-06-20 07:10] LABS: ALBUMIN 2.9 gm/dL (3.5-5.0); CALCIUM 8.7 mg/dL (8.5-10.5); CREATININE 1.7 mg/dL (0.6-1.3); PHOSPHORUS 3.9 mg/dL (2.5-4.9)
[2016-06-20 07:11] LABS: ANION GAP 12.5 (10.0-19.0)
[2016-06-20 07:12] LABS: POTASSIUM 4.5 mMol/L (3.7-5.1)
--- NOTE | 2016-06-20 17:23 | NUR ---
Significant Event: A/O X 3. DENIES PAIN. AFEBRILE. HR CHRONIC A-FIB, RATES 70-80'S. [id number] TODAY. CONT. ON HIFLOW. BUMEX IV GIVEN. GOOD UOP. Follow up: CONT. TO MONITER RESP. STATUS.
[2016-06-21 04:30] LABS: BASOPHIL % 0.1 %; EOSINOPHIL % 0.1 %; HEMATOCRIT 33.2 % (37.0-53.0); HEMOGLOBIN 10.6 g/dL (11.0-16.0); IMMATURE GRANULOCYTE # 0.1 K/uL (0.0-0.3); IMMATURE GRANULOCYTE % 0.6 %; LYMPHOCYTE # 2.9 K/uL (0.8-4.0); LYMPHOCYTE % 26.2 %; MCH 35.3 pg (27.0-34.0); MCHC 31.9 gm/dL (32.0-36.5); MCV 110.7 fl (83.0-98.0); MONOCYTE # 0.3 K/uL (0.0-1.0); MPV 11.5 fl (9.4-12.4); NEUTROPHIL # (ANC) 7.9 K/uL (1.4-9.0); NRBC % 0 /100WBC (0-0.00); RDW-CV 15.9 % (11.9-14.6); WBC 11.2 K/uL (4.0-11.0)
[2016-06-21 04:31] LABS: PLATELET COUNT 56 K/uL (150-450)
[2016-06-21 04:46] LABS: ALBUMIN 2.9 gm/dL (3.5-5.0); ANION GAP 12.5 (10.0-19.0); CALCIUM 8.9 mg/dL (8.5-10.5); CREATININE 1.7 mg/dL (0.6-1.3); PHOSPHORUS 3.7 mg/dL (2.5-4.9); POTASSIUM 4.5 mMol/L (3.7-5.1)
--- NOTE | 2016-06-21 04:46 | NUR ---
Significant Event: PATIENT IS A/O X3 AND FORGETFUL. SLIGHTLY MORE DROWSY COMPARED TO YESTERDAY. VSS. HR 60-80'S. SBP 150-170'S. AFEBRILE. 02 SATS IN LOW TO MID 90'S CURRENTLY ON 70% BIPAP. WEARS HIFLOW NC DURING DAY. LUNGS VARRIED FROM SLIGHTLY COARSE TO CLEAR/DIM. VERY SOB WITH ACTIVITY. DESATS INTO 70'S EVEN WHEN HIFLOW TURNED UP TO 100% PRE-ACTIVITY. UP WITH 1-2A WITH WALKER/GB. BOWELS ACTIVE. LARGE BM VIA BEDSIDE COMMODE. ELIZONDO INTACT WITH 1250ML UOP. REDNESS TO BOTTOM. ALOE APPLIED. IV TO LEFT WRIST SL. CONTINUES TO HAVE 1+ LOWER EXTREMITY EDEMA. ON ACHS ACCUCHECKS. Follow up: CONTINUE TO MONITOR PER PLAN OF CARE.
--- NOTE | 2016-06-21 14:52 | NUR ---
A-NUTRITION F/U (+)BM. ON HIGH FLOW NC DURING THE DAY AND BIAPAP AT NIGHT. VERY SOB W/ACTIVITY. MD VISITING W/PT AND PT'S FAMILY AT THIS TIME. PER RN REPORT, PT'S RESP. STATUS IS DECLINING AND MD VISITING W/PT AND PT'S FAMILY RE: POSSIBLE INTUBATION AND PT'S POC/STATUS. LAST BUMEX DOSE 06/20; EDEMA IS 1+. BUMEX ON HOLD FOR NOW D/T RENAL STATUS. LABS: NA 145, K+ 4.5, GLU 188, BUN 75, BUSINESS PROCESS COORDINATOR 1.7, ALB 2.9 MEDS: LEVEMIR, LEVAQUIN DIET RX: CARDIAC DIET W/1200 ML FLUID RESTRICTION. PO INTAKE HAS BEEN 75-100% UNTIL LUNCH TODAY. PO INTAKE AT LUNCH TODAY WAS POOR. PT REPORTS BEING OVERWHELMED W/MEDICAL NEWS AND ANXIETY ABOUT RESP. STATUS. EST NUTR NEEDS: 7222-9373 KCALS AND 112-150 GM PROTEIN D-PT AT NUTRITION RISK W/DECREASING ORAL INTAKE R/T DECLINING RESP. STATUS AEB POSSIBLE INTUBATION, RN REPORT, INTAKE RECORD. I-1)IF PT IS INTUBATED WILL MAKE APPROPRIATE ENTERAL NUTRITION RECOMMENDATIONS AT THAT TIME. 2)START GLUCERNA QD AT [facility] M/E-GOAL: PO INTAKE >/=50% BY NEXT F/U 1)F/U PO INTAKE, SUPPLEMENT, AND POC IN 2-3 DAYS 2)ASSIST NEEDED
--- NOTE | 2016-06-21 16:05 | NUR ---
Significant Event:A/O X 3. Able to stand and walk few steps to pivot transfer. 2-assist with walker and gait belt. Desats to mid 80's with movement. Taken off Bipap at 0630 and put on HI flow O2 @ 90%. 2 view xray with assist of RN during transport with 15L/NRB. Transfered back to recliner per patient request. Dr Lynn here to see and speaks with family about prognosis. Aria wants to talk to family. Daughter to give , with induction planned for [facility] on TUE. Patient would like to see new born grandchild, before being induced. Follow up:
--- NOTE | 2016-06-22 04:52 | NUR ---
Significant Event: Patient is alert and oriented x 3. Forgetful. VSS on Bipap. Bipap FiO2 at 75%. On high flow during the day. HRs in the 70s-90s. SBPs in the 140s-150s. Max temp of 99.2. SOB at rest and with activity. Desats to 70-80% with activity. Up with 2 assist, walker, and gaitbelt. 1+ generalized edema. Lungs slightly coarse-to clear/diminished. Beal intact. 1450 out this shift. BM x 1 this shift. Denies any pain. ACHS accuchecks, aggressive scale. Left wrist IV, saline locked. On 1200 ml fluid restriction. Patient is pleasant and cooperative with cares. Follow up: Continue to monitor.
[2016-06-22 05:43] LABS: BASOPHIL % 0.1 %; EOSINOPHIL # 0.1 K/uL (0.0-0.5); EOSINOPHIL % 0.8 %; HEMATOCRIT 34.4 % (37.0-53.0); HEMOGLOBIN 10.5 g/dL (11.0-16.0); IMMATURE GRANULOCYTE # 0.1 K/uL (0.0-0.3); IMMATURE GRANULOCYTE % 0.5 %; LYMPHOCYTE # 3.6 K/uL (0.8-4.0); LYMPHOCYTE % 28.8 %; MCH 34.5 pg (27.0-34.0); MCHC 30.5 gm/dL (32.0-36.5); MCV 113.2 fl (83.0-98.0); MONOCYTE # 0.5 K/uL (0.0-1.0); MPV 11.4 fl (9.4-12.4); NEUTROPHIL # (ANC) 8.3 K/uL (1.4-9.0); NEUTROPHIL % 65.8 %; NRBC % 0 /100WBC (0-0.00); PLATELET COUNT 57 K/uL (150-450); RBC 3.04 M/uL (3.50-5.50); RDW-CV 15.9 % (11.9-14.6); WBC 12.5 K/uL (4.0-11.0)
[2016-06-22 06:04] LABS: ALBUMIN 2.7 gm/dL (3.5-5.0); CALCIUM 8.6 mg/dL (8.5-10.5); CREATININE 1.6 mg/dL (0.6-1.3)
--- NOTE | 2016-06-22 15:25 | NUR ---
Supportive visit with Aria today. Family is coming to speak with Dr Lynn.
--- NOTE | 2016-06-22 19:31 | NUR ---
Significant Event: A/O X3. UP WITH 2 ASSIST, PIVOT TRANSFER. BM X1. BIPAP AT 80% FIO2 MOST OF AFTERNOON. HI-SHAILESH NC @ 100% FOR A COUPLE HOURS BUT WAS NOT ABLE TO MAINTAIN SATS >90% AFTER THERAPY SO BIPAP PUT BACK ON. C/O HEADACHE R/T BIPAP MASK, TYLENOL PO GIVEN X1. FLUID RESTRICTION INCREASED TO 1500ML IN 24 HOURS. ELIZONDO CATH PATENT WITH 750 ML UOP. 1 MG IV BUMEX GIVEN X1. AT BEDSIDE. Follow up:
[2016-06-23 05:58] LABS: BASOPHIL % 0.1 %; EOSINOPHIL # 0.1 K/uL (0.0-0.5); EOSINOPHIL % 0.4 %; HEMATOCRIT 33.2 % (37.0-53.0); HEMOGLOBIN 10.3 g/dL (11.0-16.0); IMMATURE GRANULOCYTE # 0.1 K/uL (0.0-0.3); IMMATURE GRANULOCYTE % 0.4 %; LYMPHOCYTE # 3.1 K/uL (0.8-4.0); LYMPHOCYTE % 22.1 %; MCH 34.9 pg (27.0-34.0); MCV 112.5 fl (83.0-98.0); MONOCYTE # 0.5 K/uL (0.0-1.0); MONOCYTE % 3.8 %; MPV 11.8 fl (9.4-12.4); NEUTROPHIL # (ANC) 10.1 K/uL (1.4-9.0); NEUTROPHIL % 73.2 %; NRBC % 0 /100WBC (0-0.00); RBC 2.95 M/uL (3.50-5.50); RDW-CV 15.9 % (11.9-14.6); WBC 13.8 K/uL (4.0-11.0)
[2016-06-23 06:09] LABS: PLATELET COUNT 55 K/uL (150-450)
[2016-06-23 06:19] LABS: ALBUMIN 2.6 gm/dL (3.5-5.0); ANION GAP 12.9 (10.0-19.0); CALCIUM 8.8 mg/dL (8.5-10.5); CREATININE 1.6 mg/dL (0.6-1.3); PHOSPHORUS 3.1 mg/dL (2.5-4.9); POTASSIUM 3.9 mMol/L (3.7-5.1)
[2016-06-23 06:29] LABS: ALBUMIN 2.6 gm/dL (3.5-5.0); TOTAL PROTEIN 5.9 g/dL (6.0-8.4)
--- NOTE | 2016-06-23 07:18 | NUR ---
Significant Event: Patient is alert and oriented x 3. Forgetful. VSS on Bipap at 100% FiO2. Wears high flow during the day at 100% FiO2. HRs in the 60s-80s. SBPs in the 130s-150s. Afebrile. Up with 2 assist, walker, and gait belt. 1+ generalized edema. Lung sounds slightly coarse. Beal intact. 825 ml out. Left wrist IV, saline locked. 1500 ml fluid restriction. Son at the bedside. Patient is pleasant and cooperative with cares. Follow up: Intubation after grandbaby is born?
--- NOTE | 2016-06-23 12:38 | NUR ---
A-NUTRITION F/U ON BIPAP; POSSIBLE INTUBATION LATER TODAY (+)BS; (+)BM. 1+ GENERALIZED EDEMA. CBW 134.1 KG; STABLE SINCE LAST F/U LABS: NA 143, K+ 3.9, GLU 102, BUN 58, PACKAGER MACHINE 1.6, ALB 2.6 MEDS: ASPIRIN, BUMEX GIVEN 06/22 DIET RX: CARDIAC/1500 ML FLUID RESTRICTION. FLUID RESTRICTION INCREASED FROM 1200 ML TO 1500 ML. GLUCERNA QD AT [facility]; PT IS DRINKING. PO INTAKE HAS BEEN 50-100%, SINCE LAST F/U. EST NUTR NEEDS: 8258-9718 KCALS AND 112-150 GM PROTEIN D-AT NUTRITION RISK W/DECREASED ORAL INTAKE R/T ALT RESP. STATUS AEB INTAKE RECORDS, CHART REVIEW. I-INCREASE GLUCERNA FROM QD TO BID AT B/D M/E-GOAL: PO INTAKE >/=50% BY NEXT F/U 1)F/U PO INTAKE, SUPPLEMENT, RESP. STATUS, AND POC IN 2-3 DAYS 2)ASSIST NEEDED
--- NOTE | 2016-06-23 17:55 | NUR ---
Significant Event: ALERT/ DROWSEY. HI FLOW FOR MEALS AND OTHERWISE BIPAP. RESP. 22-24/MIN. SATS 88-95%. FAMILY IN/OUT OF ROOM ALL DAY. IV BUMEX GIVEN. AWAITING FOR A NEW GRANDSON TO ARRIVE HERE AT [facility]. Follow up: CLEAR LIQUID BREAKFAST. POSSIBLE INTUBATION BY DR. POSADA AND [facility]AN TOMORROW.
[2016-06-24 03:59] LABS: HEMATOCRIT 32.8 % (37.0-53.0); HEMOGLOBIN 10.2 g/dL (11.0-16.0); MCH 34.3 pg (27.0-34.0); MCHC 31.1 gm/dL (32.0-36.5); MCV 110.4 fl (83.0-98.0); MPV 12.2 fl (9.4-12.4); RBC 2.97 M/uL (3.50-5.50); RDW-CV 15.7 % (11.9-14.6); WBC 13.2 K/uL (4.0-11.0)
[2016-06-24 04:01] LABS: PLATELET COUNT 46 K/uL (150-450)
[2016-06-24 04:21] LABS: ALBUMIN 2.4 gm/dL (3.5-5.0); ANION GAP 10.8 (10.0-19.0); CALCIUM 8.5 mg/dL (8.5-10.5); CREATININE 1.7 mg/dL (0.6-1.3); POTASSIUM 3.8 mMol/L (3.7-5.1)
[2016-06-24 04:54] LABS: ABSOLUTE NEUTROPHIL CT (ANC) 10.8 K/uL (1.4-9.0); BANDED NEUTROPHIL # 0.1 K/uL (0.0-0.1); BANDED NEUTROPHILS % 1 %; LYMPHOCYTE # 2.1 K/uL (0.8-4.0); LYMPHOCYTE % 16 %; MONOCYTE # 0.3 K/uL (0.0-1.0); SEGMENTED NEUTROPHIL # 10.7 K/uL (1.4-9.0); SEGMENTED NEUTROPHIL % 81 %
--- NOTE | 2016-06-24 05:20 | NUR ---
Significant Event: ALERT &ORIENTED. VSS, ON 100%HI FLOW/BIPAP, SATS FLUCTUATING 60%-90%. PT REFUSED TO MOVE OR REPOSITION AFTER ALREADY DONE 2X. ELIZONDO INTACT,850CC OUT. Follow up:CONT W/PLAN OF CARE
--- NOTE | 2016-06-24 10:57 | NUR ---
Significant Event: PATIENT ALERT. DROWSEY AND SHORT OF BREATH. VERY TIRED. HR A-FIB 108, B/P 171/72. RESP. 26/MIN ON BIPAP AT 100%. Follow up: CONT. PLAN OF CARES ICU DUE TO RESP. STATUS.
--- NOTE | 2016-06-24 14:17 | NUR ---
Significant Event: Alert and oriented x3. Follows commands. PERRLA. Currently on Bipap at 85% FIO2, awaiting to meet new grandson. Generalized edema. Beal catheter intact. IV to L) saline locked. Repositioned throughout shift. Generalized ecchymosis, redness to coccyx blanches. Pericares provided. Family at bedside. Pneumatics to bilateral lower extremities. Follow up: decision about intubation.
[2016-06-24 18:13] LABS: PO2 56 mmHg (80-90)
[2016-06-24 18:16] LABS: BICARBONATE 31.2 mmol/L (18.0-23.0); PCO2 54 mmHg (35-45)
[2016-06-25 04:04] LABS: BICARBONATE 35.2 mmol/L (18.0-23.0)
[2016-06-25 04:06] LABS: PCO2 70 mmHg (35-45); PO2 73 mmHg (80-90)
[2016-06-25 05:34] LABS: ALBUMIN 2.2 gm/dL (3.5-5.0); CALCIUM 8.3 mg/dL (8.5-10.5); CREATININE 1.6 mg/dL (0.6-1.3); PHOSPHORUS 5.4 mg/dL (2.5-4.9)
[2016-06-25 05:45] LABS: ANION GAP 11.8 (10.0-19.0); POTASSIUM 4.8 mMol/L (3.7-5.1)
[2016-06-25 05:48] LABS: EOSINOPHIL % 0.1 %; HEMOGLOBIN 10.3 g/dL (11.0-16.0); IMMATURE GRANULOCYTE # 0.1 K/uL (0.0-0.3); IMMATURE GRANULOCYTE % 0.7 %; LYMPHOCYTE # 2.8 K/uL (0.8-4.0); LYMPHOCYTE % 27.9 %; MCH 34.3 pg (27.0-34.0); MCHC 30.3 gm/dL (32.0-36.5); MCV 113.3 fl (83.0-98.0); MONOCYTE # 0.2 K/uL (0.0-1.0); MONOCYTE % 1.9 %; MPV 11.9 fl (9.4-12.4); NEUTROPHIL % 69.4 %; NRBC % 0 /100WBC (0-0.00); RDW-CV 15.6 % (11.9-14.6); WBC 10.1 K/uL (4.0-11.0)
[2016-06-25 05:52] LABS: PLATELET COUNT 39 K/uL (150-450)
--- NOTE | 2016-06-25 05:53 | NUR ---
PT REMAINS INTUBATED AND SEDATED. VERSED CURRENTLY AT 4 MG/HR, FENTANYL CURRENTLY AT 75 MCG/HR. PARALYTIC GIVEN X4 THIS SHIFT DUE TO BREATH STACKING. SAS HAS BEEN 1-2 THIS SHIFT. PERRL. PT DOES NOT TOLERATE BEING TURNED TO RIGHT SIDE; PT HAS BEEN TURNED FROM BACK TO L) SIDE Q2H AND PRN. NO NEW SKIN ISSUES. PIV X2 REMAIN INTACT. UOP ADEQUATE. BP HYPERTENSIVE UPON TAKING OVER CARES, NOW NORMOTENSIVE WITH ADDITION OF FENTANYL TO SEDATION REGIMINE.OG REMAINS INTACT AND PATENT TO LIS; BS HYPOACTIVE, NO BM THIS SHIFT. MARY ELLEN SALAZARRN
--- NOTE | 2016-06-25 11:50 | NUR ---
A-NUTRITION F/U PT TRANSFERED TO ICU; INTUBATED AND PUT ON THE VENT; SEDATED W/FENTANYL AND VERSED. OG TO LIS. (+)BM; (+)BS. CHECKING STOOL FOR C-DIFF BRONCH PLANNED FOR TODAY CBW: 135.0 KG. BMI 43.0. 75 KG IBW LABS: NA 141, K+ 4.8, GLU 168, BUN 59, SOCIAL INSURANCE ADVISER 1.6, ALB 2.2 MEDS: BUMEX, ALBUMIN, DELTASONE, LEVEMIR, NOVOLOS (MILD SS), SOLUMEDROL, VERSED, LEVOPHED, SUBLIMAZE, PROTONIX, LEVAQUIN,ZEBETA DIET RX: NPO. PO INTAKE PRIOR TO ICU STATUS WAS 100% FOR THE MOST PART. PT WAS TAKING GLUCERNA WELL. EST NUTR NEEDS REASSESSED D/T CHANGE IN STATUS: [id number] KCALS (11-14 KCALS/KG) AND 112-150 GM PROTEIN (1.5-2.0 GM/KG IBW) D-AT NUTRITION RISK W/DIFF. SWALLOWING R/T VENT SUPPORT AEB NPO STATUS I-IF TF DESIRED, RECOMMEND PROMOTE AT A GOAL RATE OF 80 ML/HR. THIS WILL PROVIDE 1920 KCALS, 120 GM PROTEIN, AND 1611 ML FREE H20 M/E-GOAL: START NUTRITION RX IN 24-48 HOURS 1)F/U POC, WT, LABS IN 3-4 DAYS 2)ASSIST NEEDED
--- NOTE | 2016-06-25 13:23 | NUR ---
Significant Event: Sedated on versed, fentanyl. Rocuronium given x1. Bronchoscopy this morning by Dr. Lynn. 100% FIO2, Peep of 12. OG to LIS. Albumin 25% and Bumex 1 mg given, pascual catheter intact. L) wrist IV and L) hand IV infusing NS at 50 ml/hr, versed and fentanyl. Accuchecks q6h. Repositioned throughout shift. Oral cares q4h. Follow up: monitor.
--- NOTE | 2016-06-25 16:59 | NUR ---
No significant changes to vent settings t/o shift, continued on 100% Fio2, Peep 12, increased RR from 20 to 24. Bronch completed with collection of BAL. Lung sounds diminished/slightly coarse right>left. Spont strong cough from Pt, sxn small thick white. Will continue to wean as tolerated
[2016-06-26 04:01] LABS: BICARBONATE 31.7 mmol/L (18.0-23.0); PCO2 63 mmHg (35-45); PO2 64 mmHg (80-90)
--- NOTE | 2016-06-26 04:43 | NUR ---
Patient currently on the ventilator. FiO2 weaned down to 80% this shift. O2 sats were 94-97%. ETCO2 was 31-35 throughout the shift. Breathsounds diminished throughout on the right lung and clear and diminished throughout the left lung. Suctioning scant to small amounts of thin white secretions. Will continue to monitor patient.
--- NOTE | 2016-06-26 04:49 | NUR ---
Significant Event: Patient remains intubated/sedated. PEEP remains at 12. Fio2 80%. Clear and diminished lung sounds. Rocuronium given x1. Promote at 50ml/hr, goal is 80ml/hr. Afebrile. NO BM during shift. Follow up: Continue on current plan of care.
[2016-06-26 05:36] LABS: HEMATOCRIT 30.6 % (37.0-53.0); HEMOGLOBIN 9.5 g/dL (11.0-16.0); IMMATURE GRANULOCYTE # 0.1 K/uL (0.0-0.3); IMMATURE GRANULOCYTE % 0.8 %; LYMPHOCYTE # 2.3 K/uL (0.8-4.0); LYMPHOCYTE % 25.8 %; MCH 34.8 pg (27.0-34.0); MCV 112.1 fl (83.0-98.0); MONOCYTE # 0.3 K/uL (0.0-1.0); MONOCYTE % 3.3 %; MPV 12.4 fl (9.4-12.4); NEUTROPHIL # (ANC) 6.1 K/uL (1.4-9.0); NEUTROPHIL % 70.1 %; NRBC % 0 /100WBC (0-0.00); RBC 2.73 M/uL (3.50-5.50); RDW-CV 15.7 % (11.9-14.6); WBC 8.8 K/uL (4.0-11.0)
[2016-06-26 05:38] LABS: PLATELET COUNT 31 K/uL (150-450)
[2016-06-26 05:41] LABS: ALBUMIN 2.8 gm/dL (3.5-5.0); CALCIUM 8.3 mg/dL (8.5-10.5); CREATININE 1.8 mg/dL (0.6-1.3); PHOSPHORUS 5.5 mg/dL (2.5-4.9); POTASSIUM 4.8 mMol/L (3.7-5.1)
[2016-06-26 05:44] LABS: ANION GAP 16.8 (10.0-19.0)
--- NOTE | 2016-06-26 15:58 | NUR ---
Significant Event:Withdraws to pain, sedated on Fentanyl and Versed, no Rocuronium given this shift. Vented on AC, FI O2 decreased to 70%. OG replaced today after it was found to be looped in the back of his mouth, now is OK to use in the stomach. Promote TF increased to 70 ml/h with no residual. Free water flush 150 ml q4h. NO BM. Beal patent. Redness on coccyx blaches, bruise to R) lower calf is dark purple. PLT's low, so Heparin held. New parameters for meds, see eMAR. SL'd. 1 dose of IV Albumin given. Follow up:Increase goal to 80 ml at 1900, which is goal. Wean vent.
--- NOTE | 2016-06-26 16:39 | NUR ---
PT VENTED ON 70% SATS 90-94%, BREATH SOUNDS COARSE AND WHEEZY THROUGHOUT, SXN A MODERATE AMOUNT OF ZABALA SPUTUM, ETCO2 30-34 MOST OF THE DAY, WILL CONTINUE TO MONITOR AND WEAN PT TOLERATES
[2016-06-27 04:19] LABS: BICARBONATE 32.6 mmol/L (18.0-23.0); PO2 70 mmHg (80-90)
[2016-06-27 04:19] LABS: BILIRUBIN URINE NEGATIVE (NEGATIVE); BLOOD URINE 250 /UL (NEGATIVE); GLUCOSE URINE NEGATIVE (NEGATIVE); KETONE URINE NEGATIVE (NEGATIVE); LEUKOCYTES URINE NEGATIVE /UL (NEGATIVE); NITRITE URINE NEGATIVE (NEGATIVE); PROTEIN URINE 500 mg/dL (NEGATIVE); UROBILINOGEN URINE NORMAL (NORMAL)
[2016-06-27 04:25] LABS: PCO2 76 mmHg (35-45)
[2016-06-27 04:26] LABS: COLOR URINE RED (YELLOW); TURBIDITY URINE 4+ (CLEAR)
[2016-06-27 04:50] LABS: BACTERIA URINE MODERATE (NEGATIVE); RBC URINE PACKED FIELD #/HPF (NEGATIVE); WBC URINE NEGATIVE #/HPF (NEGATIVE)
[2016-06-27 06:10] LABS: ALBUMIN 3.4 gm/dL (3.5-5.0); CALCIUM 8.7 mg/dL (8.5-10.5); CREATININE 1.9 mg/dL (0.6-1.3); PHOSPHORUS 4.7 mg/dL (2.5-4.9); POTASSIUM 4.6 mMol/L (3.7-5.1)
[2016-06-27 06:13] LABS: ANION GAP 11.6 (10.0-19.0); MAGNESIUM 2.9 mg/dL (1.3-2.6)
[2016-06-27 11:38] LABS: EOSINOPHIL % 0.2 %; HEMATOCRIT 32.6 % (37.0-53.0); HEMOGLOBIN 9.8 g/dL (11.0-16.0); IMMATURE GRANULOCYTE # 0.1 K/uL (0.0-0.3); IMMATURE GRANULOCYTE % 0.5 %; LYMPHOCYTE # 3.4 K/uL (0.8-4.0); LYMPHOCYTE % 29.1 %; MCH 34.9 pg (27.0-34.0); MCHC 30.1 gm/dL (32.0-36.5); MONOCYTE # 0.5 K/uL (0.0-1.0); MONOCYTE % 3.8 %; MPV 12.5 fl (9.4-12.4); NEUTROPHIL # (ANC) 7.9 K/uL (1.4-9.0); NEUTROPHIL % 66.4 %; NRBC % 0.3 /100WBC (0-0.00); RBC 2.81 M/uL (3.50-5.50); WBC 11.8 K/uL (4.0-11.0)
[2016-06-27 11:42] LABS: PLATELET COUNT 39 K/uL (150-450)
[2016-06-27 12:40] LABS: INR - (THERAPEUTIC) 1.2 (0.9-1.1); PROTIME 12.9 SECONDS (9.6-11.1)
[2016-06-27 13:37] LABS: BICARBONATE 30.3 mmol/L (18.0-23.0); PCO2 69 mmHg (35-45); PO2 73 mmHg (80-90)
--- NOTE | 2016-06-27 16:40 | NUR ---
PATIENT VENTED ON 100% SATS 90-94%, BREATH SOUNDS SLIGHTLY COARSE WITH WHEEZES AT TIMES, SXN A SMALL AMOUNT OF CREAMY WHITE SPUTUM, ETCO2 34-38 MOST OF THE DAY, VENT SETTINGS CHANGED TO VT 600, RR 20, WILL CONTINUE TO MONITOR UNTIL FURTHER NOTICE
--- NOTE | 2016-06-27 17:44 | NUR ---
Significant Event: RESP: FiO2 100% SaO2 low 90s. PEEP 10. Coarse lung sounds throughout. NEURO: SAS 1-2 per MD with Versed at 12 mg/hr and Fentanyl at 100 mcg/hr. GI: No BM. Dulcolax ordered at end of shift. : Scott blood in urine, low urine output; about 20 ml/hr. Multiple irrigation attempts. CBI ordered at end of shift.
--- NOTE | 2016-06-28 02:55 | NUR ---
Significant Event: Patient remains intubated/sedated. SAS of 1-2. See neuro. HR's 60's-70;s. SBP 110's. Maps greater than 65. 1+-2+ edema. Afebrile. AC mode. TV 600. RR 20 Fio2 100% Peep 10. Coarse and diminshed lung sounds. Minmual secreations out of ET tube. PIP's 40's. Lee given x1. Ecto2 30's. Hypoactive BS. NO BM. Dulcolax sup given. CBI currently running at slow rate. TF at 80ml/hr,goal. 65 highest residual. Follow up: Continue on current plan of care.
[2016-06-28 05:04] LABS: BASOPHIL % 0.1 %; EOSINOPHIL % 0.1 %; HEMOGLOBIN 9.9 g/dL (11.0-16.0); IMMATURE GRANULOCYTE # 0.1 K/uL (0.0-0.3); IMMATURE GRANULOCYTE % 0.8 %; LYMPHOCYTE % 27.9 %; MCH 34.7 pg (27.0-34.0); MCV 115.8 fl (83.0-98.0); MONOCYTE # 0.5 K/uL (0.0-1.0); MONOCYTE % 3.1 %; MPV 12.9 fl (9.4-12.4); NEUTROPHIL # (ANC) 9.9 K/uL (1.4-9.0); NRBC % 0.2 /100WBC (0-0.00); RBC 2.85 M/uL (3.50-5.50); WBC 14.5 K/uL (4.0-11.0)
[2016-06-28 05:05] LABS: PLATELET COUNT 30 K/uL (150-450)
[2016-06-28 05:15] LABS: BICARBONATE 30.6 mmol/L (18.0-23.0)
[2016-06-28 05:18] LABS: PCO2 90 mmHg (35-45); PO2 58 mmHg (80-90)
[2016-06-28 05:27] LABS: ALBUMIN 2.9 gm/dL (3.5-5.0); CALCIUM 8.4 mg/dL (8.5-10.5); PHOSPHORUS 7.4 mg/dL (2.5-4.9)
[2016-06-28 05:32] LABS: ANION GAP 17.3 (10.0-19.0); CREATININE 3.1 mg/dL (0.6-1.3); MAGNESIUM 3.1 mg/dL (1.3-2.6); POTASSIUM 6.3 mMol/L (3.7-5.1); TOTAL BILIRUBIN 0.6 mg/dL (0.0-1.5)
[2016-06-28 15:03] LABS: BICARBONATE 28.8 mmol/L (18.0-23.0); PO2 55 mmHg (80-90)
[2016-06-28 15:05] LABS: PCO2 72 mmHg (35-45)
--- NOTE | 2016-06-28 16:54 | NUR ---
PT VENTED ON 100% SATS 88-91%, BREATH SOUNDS COARSE RALES AND WHEEZY THROUHGOUT, SXN A SCANT AMOUNT OF BLOOD TINGED SPUTUM, ETCO2 22-26 TOWARDS END OF THE DAY, VENT CHANGES MADE, A/C, RR35, VT 500, PEEP 14, WILL CONTINUE TO MONITOR UNTIL FURTHER NOTICE
[2016-06-28 17:36] LABS: ANION GAP 14.9 (10.0-19.0); CALCIUM 8.5 mg/dL (8.5-10.5); CREATININE 3.6 mg/dL (0.6-1.3); PHOSPHORUS 7.5 mg/dL (2.5-4.9); POTASSIUM 5.9 mMol/L (3.7-5.1)
--- NOTE | 2016-06-28 17:38 | NUR ---
Significant Event: PT remains intubated, sedated on versed/fent. Peep increased to 14, Fio2 100%, sats in the upper 80's-low 90's. Potassium remains high, insulin d50, kayexalte given x2. Beal patent, CBI stopped this AM, this evening urine turning dark dilan/bloodish, irrigated. PT repositioned frequent. notified of low output. TF at 80ml/hr. PT started on bicarb at 100ml/hr. Blood sugars remain high, SSI changed this shift. Family only here for a short time today. Follow up:
[2016-06-29 04:28] LABS: BICARBONATE 34.4 mmol/L (18.0-23.0); PO2 66 mmHg (80-90)
[2016-06-29 04:35] LABS: PCO2 75 mmHg (35-45)
[2016-06-29 05:08] LABS: BASOPHIL % 0.1 %; HEMATOCRIT 30.2 % (37.0-53.0); IMMATURE GRANULOCYTE # 0.1 K/uL (0.0-0.3); IMMATURE GRANULOCYTE % 0.8 %; LYMPHOCYTE # 3.6 K/uL (0.8-4.0); LYMPHOCYTE % 30.4 %; MCH 34.1 pg (27.0-34.0); MCHC 29.8 gm/dL (32.0-36.5); MCV 114.4 fl (83.0-98.0); MONOCYTE # 0.3 K/uL (0.0-1.0); MONOCYTE % 2.8 %; MPV 13.5 fl (9.4-12.4); NEUTROPHIL # (ANC) 7.8 K/uL (1.4-9.0); NEUTROPHIL % 65.9 %; NRBC % 0.3 /100WBC (0-0.00); RBC 2.64 M/uL (3.50-5.50); RDW-CV 16.1 % (11.9-14.6); WBC 11.9 K/uL (4.0-11.0)
[2016-06-29 05:11] LABS: PLATELET COUNT 25 K/uL (150-450)
--- NOTE | 2016-06-29 05:15 | NUR ---
PATIENT REMAINS ON 100% FIO2 WITH SATURATIONS 91-97%. BREATH SOUNDS ARE COARSE, WHEEZY, AND FINE RALES THROUGH OUT. COARSENESS CLEARS WITH SUCTIONING. SUCTIONING SCANT TO SMALL AMOUNTS OF THICK BLOODY. ENTIDAL HAS BEEN UPPER 20'S TO MID 30'S. WILL CONTNIUE TO MONITOR.
[2016-06-29 05:20] LABS: ALBUMIN 2.8 gm/dL (3.5-5.0); CALCIUM 8.1 mg/dL (8.5-10.5); CREATININE 3.8 mg/dL (0.6-1.3); PHOSPHORUS 7.1 mg/dL (2.5-4.9)
[2016-06-29 05:21] LABS: ANION GAP 14.9 (10.0-19.0); POTASSIUM 5.9 mMol/L (3.7-5.1)
--- NOTE | 2016-06-29 11:01 | NUR ---
A-NUTRITION F/U ON VENT; SEDATED W/VERSED AND FENTANYL. SMALL BM 06/28. VERY LITTLE UOP FAMILY MEETING TODAY WITH MD STALEY: EVALUATION FOR ECHMO LABS: NA 138, K+ 5.9, GLU 278, BUN 141, BATTERY STARTER 3.8, ALB 2.8, P 7.1, /3-10.0 MEDS: KAYEXALATE HOURLY, LEVEMIR (ADJ), NOVOLIN-R (ADJ) DIET RX: NPO; 80 ML/HR PROMOTE. MINMAL RESIDUALS EST NUTR NEEDS (REASSESSED D/T DECLINED RENAL FUNTION): [id number] (30-35 KCALS/KG IBW) AND 45-75 GM PROTEIN (0.6-1.0 GM/KG IBW) D-AT NUTRITION RISK W/DIFF. SWALLOWING R/T VENT SUPPORT AEB NPO STATUS AND NEED FOR ENTERAL NUTRITION. I-RECOMMEND CHANGING TF FORMULA TO NEPRO AT A GOAL RATE OF 50 ML/HR. THIS WILL PROVIDE 2160 KCALS, 97 GM PROTEIN, AND 872 ML FREE WATER. M/E-GOAL: CONTINUED TF TOLERANCE 1)F/T TF AND POC IN 2-3 DAYS 2)ASSIST NEEDED
--- NOTE | 2016-06-29 16:38 | NUR ---
D: RESPIRATORY FAILURE I: V2OO, ALBUTEROL MDI R: BREATH SOUNDS SLIGHTLY COARSE WITH OCCASIONAL INSPIRATORY WHEEZE LOWER LOBES, SXN- SMALL THICK BLOODY/BLD TINGED, ET TUBE SECURE, CUFF AT MINIMAL OCCLUSIVE PRESSURE, ETCO2 30-36, ON 100% FIO2, FOREHEAD PROBE REPOSTITIONED P: CONTINUE CURRENT THERAPY
[2016-06-29 17:45] LABS: ALBUMIN 2.7 gm/dL (3.5-5.0); CALCIUM 8.1 mg/dL (8.5-10.5); PHOSPHORUS 7.8 mg/dL (2.5-4.9)
[2016-06-29 17:46] LABS: ANION GAP 14.1 (10.0-19.0); CREATININE 4.3 mg/dL (0.6-1.3); POTASSIUM 6.1 mMol/L (3.7-5.1)
--- NOTE | 2016-06-29 19:28 | NUR ---
Significant Event: Patient sedated. Pupils 3mm, brisk. Does not withdraw in uppers or lowers to pain. Does not open eyes to pain. No gag. No cough. Tele- a fib with PVC's. K+ 5.8. Kayexalate given q 1 hour until dc'd by due to K+ level not changing. HR's 60-70's. SBP 120-140's. Bilateral leg DVT's, no pneumatics. 1-2+ edema noted. Patient vented, A/C mode at 100% FiO2, PEEP of 14. L) lungs coarse with expiratory wheezes. R) lungs both expiratory and inspiratory wheezes. Tachypneic, resp rates 30's. Beal patent and draining yellow urine with slow CBI. Did clot off this afternoon, irrigated. Low urine output, and notified. Patient has had small emesis's throughout the day. OG in place, feeding Promote at 80 mL/hr with 250 mL H2O flushes q 4 hours. No residuals. Patient has bruising throughout body, platelets very low. Skin breakdown underneath folds, moisture barrier applied. IV to L) wrist, saline locked. IV to L) hand running versed at 11, fentanyl at 100. Follow up: Na levels q 4 hours.
--- NOTE | 2016-06-30 04:59 | NUR ---
Significant Event: Patient sedated on versed and fentanyl. SAS 1-2. Does not withdraw to painful stimuli. Grimaces with some cares. Afib, 60-70s, bp stable. Edema present. Continues on ventilator, A/C 100%fio2, 14 PEEP, PIPs 40s. Lung sounds slightly coarse with occasional wheezes. Bowel sounds hypoactive, tube feeding and water flushes stopped r/t residual of 2380, MD notified, GI to see today. No bm this shift. Beal intact, CBI continues at slow rate, adequate UOP. No new or worsening skin issues. Afebrile. NS started this shift at 50ml/hr. Follow up: GI consult
[2016-06-30 05:00] LABS: BICARBONATE 31.2 mmol/L (18.0-23.0); PCO2 62 mmHg (35-45)
[2016-06-30 05:01] LABS: PO2 100 mmHg (80-90)
[2016-06-30 05:03] LABS: BASOPHIL % 0.1 %; HEMATOCRIT 29.1 % (37.0-53.0); HEMOGLOBIN 8.9 g/dL (11.0-16.0); IMMATURE GRANULOCYTE # 0.1 K/uL (0.0-0.3); IMMATURE GRANULOCYTE % 0.7 %; LYMPHOCYTE # 3.9 K/uL (0.8-4.0); LYMPHOCYTE % 34.5 %; MCH 34.5 pg (27.0-34.0); MCHC 30.6 gm/dL (32.0-36.5); MCV 112.8 fl (83.0-98.0); MONOCYTE # 0.4 K/uL (0.0-1.0); MONOCYTE % 3.2 %; MPV 13.1 fl (9.4-12.4); NEUTROPHIL # (ANC) 6.9 K/uL (1.4-9.0); NEUTROPHIL % 61.5 %; NRBC % 0.4 /100WBC (0-0.00); RBC 2.58 M/uL (3.50-5.50); WBC 11.2 K/uL (4.0-11.0)
[2016-06-30 05:04] LABS: PLATELET COUNT 22 K/uL (150-450)
[2016-06-30 05:19] LABS: ALBUMIN 2.5 gm/dL (3.5-5.0); CALCIUM 7.9 mg/dL (8.5-10.5); PHOSPHORUS 8.5 mg/dL (2.5-4.9)
--- NOTE | 2016-06-30 05:20 | NUR ---
D: RESP. FAILURE I: VENT, MDI R: PT. REMAINED ON PEEP OF 14 AND 100% FIO2. ETCO2 33-38. SLIGHTLY COARSE T/O WITH I/E WHEEZES IN THE UPPER AIRWAY. P: CONTINUE TO FOLLOW UNTIL FURTHER NOTICE
[2016-06-30 05:39] LABS: ANION GAP 18.5 (10.0-19.0); CREATININE 4.7 mg/dL (0.6-1.3); POTASSIUM 6.5 mMol/L (3.7-5.1)
--- NOTE | 2016-06-30 08:56 | NUR ---
unable to tread power glide
--- NOTE | 2016-06-30 14:14 | NUR ---
Significant Event: Sedated on Versed and fentanyl, no withdraw to pain. PERRLA. No spontaneous movement noted. Goal SAS of 1-2. Afib, generalized edema. AFebrile. No SCD's due to bilateral DVT's. A/C currently 90% FIO2, PEEP of 14. OG to LIS, GI consulted for high residuals. Beal catheter, CBI currently off, Albumin given today. Accuchecks q6h. L) wrist IV and L) hand IV saline locked. R) dialysis catheter with piggy tail infusing Versed, fentanyl and Bicarb at 100 ml/hr. Pericares provided. Oral cares q4h. Repositioned throughout shift. Family at bedside intermittently. Follow up: monitor.
[2016-06-30 18:32] LABS: ALBUMIN 2.8 gm/dL (3.5-5.0); CREATININE 3.7 mg/dL (0.6-1.3); PHOSPHORUS 6.5 mg/dL (2.5-4.9)
[2016-06-30 18:34] LABS: ANION GAP 14.3 (10.0-19.0); CALCIUM 7.3 mg/dL (8.5-10.5); POTASSIUM 5.3 mMol/L (3.7-5.1)
[2016-07-01 04:27] LABS: ALBUMIN 3.4 gm/dL (3.5-5.0); ANION GAP 18.5 (10.0-19.0); CALCIUM 7.6 mg/dL (8.5-10.5); PHOSPHORUS 8.1 mg/dL (2.5-4.9); POTASSIUM 5.5 mMol/L (3.7-5.1)
[2016-07-01 04:33] LABS: CREATININE 4.1 mg/dL (0.6-1.3)
[2016-07-01 04:33] LABS: BICARBONATE 31.9 mmol/L (18.0-23.0); PCO2 62 mmHg (35-45); PO2 65 mmHg (80-90)
[2016-07-01 04:45] LABS: BASOPHIL % 0.1 %; EOSINOPHIL % 0.1 %; IMMATURE GRANULOCYTE # 0.1 K/uL (0.0-0.3); IMMATURE GRANULOCYTE % 0.7 %; LYMPHOCYTE # 2.8 K/uL (0.8-4.0); LYMPHOCYTE % 40.8 %; MCV 109.6 fl (83.0-98.0); MONOCYTE # 0.3 K/uL (0.0-1.0); MONOCYTE % 4.7 %; MPV 13.7 fl (9.4-12.4); NEUTROPHIL # (ANC) 3.7 K/uL (1.4-9.0); NEUTROPHIL % 53.6 %; NRBC % 0.3 /100WBC (0-0.00); RBC 2.09 M/uL (3.50-5.50); WBC 6.8 K/uL (4.0-11.0)
[2016-07-01 04:51] LABS: HEMATOCRIT 22.9 % (37.0-53.0); HEMOGLOBIN 7.2 g/dL (11.0-16.0); MCH 34.4 pg (27.0-34.0); MCHC 31.4 gm/dL (32.0-36.5)
[2016-07-01 04:52] LABS: PLATELET COUNT 17 K/uL (150-450)
--- NOTE | 2016-07-01 05:14 | NUR ---
FiO2 weaned down to 65%, PaO2 on this AM 65. BrSs crackles/rales t/o. Suctioned small amounts of thick blood-tinged secretions from ETT. EtCO2 28-30 this shift. Continue to wean FiO2 as tolerated.
--- NOTE | 2016-07-01 05:34 | NUR ---
PATIENT IS SEDATED WITH IV VERSED AT 5MG/H AND FENTANYL AT 75MG/H DOES NOT WITHDRAW TO PARTIAL NAILBED PRESSURE,DOES NOT OPEN HIS EYES DOES NOT FOLLOW SIMPLE COMMANDS,CLEAR UPPER LUNGS SOUND DIMINISHED AND COARSE LUNGS SOUND TO THE BASES,A/C VENT MODE FIO2=65%.C2SCB=48%,THICK CREAMY SECRTIONS WHEN SUCTIONED. FOLLOW UP:CONTINUE TO MONITOR PATIENT'S HEMODYNAMIC AND RESPIRATORY STATUS CLOSELY.
--- NOTE | 2016-07-01 10:12 | NUR ---
A - ON VENT W/ VERSED. K+ 5.5, GLU 137, BUN/GEOPHYSICAL MANAGER 146/4.1, ALB 3.4, PO4 8.1, H/H 7.2/22.9. TF OFF D/T HIGH RESIDUALS. GI CONSULT. PT W/ 1-2+ EDEMA. DIALYSIS TODAY. EST NEEDS: 7385-0934 KCALS, 45-75 GM PROTEIN. PER RN, CAN'T GET OG DOWN. TREATING PT DAY BY DAY PER WIFES WISHES. D - AT RISK W/ INADEQUATE NUTRIENT INTAKE R/T ALTERED GI FXN AEB HIGH RESIDUALS. I - GOAL: FEEDING APPROPRIATE. M/E - IF TF RESUMED REC NEPRO AT 50 ML/HR. WILL F/U IN 2-4 DAYS.
--- NOTE | 2016-07-01 14:52 | NUR ---
Supportive visit with today. Will continue to follow.
--- NOTE | 2016-07-01 17:50 | NUR ---
Significant Event: Continues sedated on vent. Versed weaned off and fentanyl weaned to 25mcg/hr. Pt does not overbreathe or withdraw extremities. Dobhoff inserted and confirmed for use by radiology. Hemodialysis done with 2L UF. Family present intermittently. Follow up: continue
[2016-07-02 04:09] LABS: BICARBONATE 29.6 mmol/L (18.0-23.0); PCO2 63 mmHg (35-45); PO2 72 mmHg (80-90)
--- NOTE | 2016-07-02 04:48 | NUR ---
SIGNIFICANT EVENT: NO SIGNIFICANT CHANGES THROUGHOUT SHIFT. FENTANYL INCREASED TO 50MCG DUE TO INCREASED RR, PIPs, BP. DOES NOT WITHDRAW TO PAIN, VERY SLIGHT GAG AND INDUCED COUGH. DOES NOT OPEN EYES. FOLLOW UP:
--- NOTE | 2016-07-02 04:57 | NUR ---
FiO2 currently at 75%, Peep 14, SpO2 low 90s. EtCO2 29-32 this shift. BrSs coarse t/o, bloody secretions suctioned from ETT. No sedation. Has overbreathed the RR of 35 a few times tonight. No other changes. Continue per plan of care.
[2016-07-02 05:13] LABS: ALBUMIN 3.6 gm/dL (3.5-5.0); ANION GAP 17.4 (10.0-19.0); CALCIUM 7.7 mg/dL (8.5-10.5); CREATININE 3.2 mg/dL (0.6-1.3); PHOSPHORUS 8.4 mg/dL (2.5-4.9); POTASSIUM 5.4 mMol/L (3.7-5.1)
[2016-07-02 05:28] LABS: BASOPHIL % 0.1 %; HEMATOCRIT 25.9 % (37.0-53.0); IMMATURE GRANULOCYTE # 0.1 K/uL (0.0-0.3); IMMATURE GRANULOCYTE % 0.7 %; LYMPHOCYTE # 3.5 K/uL (0.8-4.0); MCV 110.7 fl (83.0-98.0); MONOCYTE # 0.4 K/uL (0.0-1.0); MONOCYTE % 3.4 %; MPV 14.1 fl (9.4-12.4); NEUTROPHIL # (ANC) 6.3 K/uL (1.4-9.0); NEUTROPHIL % 61.8 %; NRBC % 0.2 /100WBC (0-0.00); RBC 2.34 M/uL (3.50-5.50); RDW-CV 16.6 % (11.9-14.6); WBC 10.3 K/uL (4.0-11.0)
[2016-07-02 05:30] LABS: HEMOGLOBIN 7.9 g/dL (11.0-16.0); MCH 33.8 pg (27.0-34.0); MCHC 30.5 gm/dL (32.0-36.5); PLATELET COUNT 25 K/uL (150-450)
--- NOTE | 2016-07-02 13:25 | NUR ---
Significant Event:Unresponsive to pain, no gag reflex, sedated on Fentanyl 50 mcg, no eye opening. SBP 120's to 160's. Afib. HR 60's. Ventilated on AC with 60% FiO2 and 14 of PEEP. Lungs coarse throughout. Suctioned orally and ENT, blood tinged. NPO. Rare bowel sounds. NO BM. Beal patent with 15-35 ml out per hour. Dialysis today. Excoriations in bilateral groins, moisture barrier applied and dry cloths in skin folds. Turned q2h. had long discussion about plan of care with Palliative Care Nurse, Evelyn. Follow up:Talk with Dr Pavon about plan of care with this afternoon.
--- NOTE | 2016-07-02 17:18 | NUR ---
D: RESPIRATORY FAILURE I: V2OO, ALBUTEROL MDI R: BREATH SOUNDS COARSE THROUGHOUT, SXN- MODERATE THICK BLOODY, ET TUBE SECURE, CUFF AT MINIMAL OCCLUSIVE PRESSURE, ETCO2 30-34 P: CONTINUE CURRENT THERAPY
--- NOTE | 2016-07-02 17:52 | NUR ---
A-NUTRITION F/U ON THE VENT; VERSED OFF; FENTANYL ON. NO GAG. UNRESPONSIVE TO PAIN. DIALYSIS TODAY; 3 KILO REMOVED RARE BS; NO BM. DOBHOFF PLACED. MINIMAL UOP PALLIATIVE CARE CONSULT; PT'S FAMILY MEETING AGAIN ON TUESDAY TO DISCUSS POC LABS: NA 136, K+ 5.4, GLU 177, BUN 100, MOVIE SHOT CAMERAMAN 3.2, ALB 3.6 DIET RX: NPO EST NUTR NEEDS (REASSESSED D/T DIALYIS): [id number] KCALS (30-35 KCALS/KG (IBW) AND 90 GM PROTEIN (1.2 GM/KG IBW) D-AT NUTRITION RISK W/DIFF. SWALLOWING R/T VENT SUPPORT AEB NPO. ALSO AT NUTRITION RISK W/INCREASED NUTRIENT NEEDS R/T ALTERED RENAL FXN AEB DIALYSIS. I-IF TF DESIRED, RECOMMEND NEPRO AT A GOAL RATE OF 50 ML/HR. THIS WILL PROVIDE 2160 KCALS, 97 GM PROTEIN, AND 872 ML FREE WATER M/E-GOAL: START APPROPRIATE DIET RX WHEN MEDICALLY INDICATED 1)F/U POC IN 2-3 DAYS 2)ASSIST A NEEDED
[2016-07-02 19:21] LABS: ALBUMIN 3.8 gm/dL (3.5-5.0); CALCIUM 7.5 mg/dL (8.5-10.5); CREATININE 1.9 mg/dL (0.6-1.3); PHOSPHORUS 5.5 mg/dL (2.5-4.9)
[2016-07-02 19:23] LABS: ANION GAP 15.3 (10.0-19.0); POTASSIUM 4.3 mMol/L (3.7-5.1)
--- NOTE | 2016-07-03 03:37 | NUR ---
Patient's FIO2 was 50% at the start of the shift, had to be increased to 70% due to low saturations. On 70%, saturations in the low to mid 90's. Patient's PEEP still 14. Breath sounds are coarse with ocassional wheezese through out and crackles in the bases. Suctining dalton, bloody sputum in small to moderate amounts. Suction cath changed this shift. Will continue to monitor.
[2016-07-03 04:26] LABS: ALBUMIN 3.6 gm/dL (3.5-5.0); ANION GAP 15.6 (10.0-19.0); CALCIUM 7.8 mg/dL (8.5-10.5); CREATININE 2.4 mg/dL (0.6-1.3); PHOSPHORUS 7.5 mg/dL (2.5-4.9); POTASSIUM 4.6 mMol/L (3.7-5.1)
[2016-07-03 04:36] LABS: BICARBONATE 26.5 mmol/L (18.0-23.0); PCO2 59 mmHg (35-45); PO2 82 mmHg (80-90)
[2016-07-03 04:41] LABS: BASOPHIL % 0.1 %; HEMATOCRIT 26.8 % (37.0-53.0); HEMOGLOBIN 8.3 g/dL (11.0-16.0); IMMATURE GRANULOCYTE # 0.2 K/uL (0.0-0.3); IMMATURE GRANULOCYTE % 1.6 %; LYMPHOCYTE % 35.2 %; MCH 34.3 pg (27.0-34.0); MCV 110.7 fl (83.0-98.0); MONOCYTE # 0.4 K/uL (0.0-1.0); MPV 13.4 fl (9.4-12.4); NEUTROPHIL # (ANC) 8.5 K/uL (1.4-9.0); NEUTROPHIL % 60.1 %; NRBC % 0.8 /100WBC (0-0.00); RBC 2.42 M/uL (3.50-5.50); RDW-CV 16.8 % (11.9-14.6); WBC 14.2 K/uL (4.0-11.0)
[2016-07-03 04:44] LABS: PLATELET COUNT 35 K/uL (150-450)
--- NOTE | 2016-07-03 05:15 | NUR ---
Significant Event: Pt has been sedated with fent this shift, down to 10 mcg/hr. Pupils are equal and reactive. Pt does not follow any commands or withdraw in any extremity. On the Vent in A/C. FiO2 increased to 70% this shift with a PEEP of 14. 3+ Generalized edema. Dobhof to the R) nare with minimal residuals this shift. Beal cath in place with minimal output this shift. No BM this shift. Dialysis cath in place with a pigtail, and one PIV Follow up: Ween sedation and vent if able.
--- NOTE | 2016-07-03 16:57 | NUR ---
No changes to vent settings t/o shift, Fio2 increased to 70% at start of shift, weaned back down to 50%. Sxn moderate to large at times, thick dark blood-tinged. Pt has weak cough with sxn. Will continue to monitor
--- NOTE | 2016-07-03 17:19 | NUR ---
SIGNIFICANT EVENT: PATIENT REMAINS INTUBATED ON 50% FI02, LUNG SOUNDS ARE COURSE THROUGHOUT WITH CRACKLES AND WHEEZES. HEART RATES IN THE 70-90S, A-FIB. 3+ GENERALIZED EDEMA WITH SIGNIFICIANT NECK AND CHEST EDEMA. TOOK OFF 4800 IN DIALISIS TODAY, MINIMAL OUTPUT FROM [facility], NO STOOLS. DOBHOFF INTACT, NO RESIDUALS, NO TF AT THIS TIME. FENTANYL DECREASED TO .5 MCG.
[2016-07-03 18:40] LABS: ALBUMIN 4.8 gm/dL (3.5-5.0); ANION GAP 18.8 (10.0-19.0); CALCIUM 8.2 mg/dL (8.5-10.5); CREATININE 1.8 mg/dL (0.6-1.3); PHOSPHORUS 5.1 mg/dL (2.5-4.9); POTASSIUM 3.8 mMol/L (3.7-5.1)
[2016-07-04 04:51] LABS: ALBUMIN 4.3 gm/dL (3.5-5.0); CALCIUM 8.5 mg/dL (8.5-10.5); CREATININE 2.4 mg/dL (0.6-1.3); TOTAL PROTEIN 6.4 g/dL (6.0-8.4)
[2016-07-04 04:58] LABS: HEMATOCRIT 25.8 % (37.0-53.0); MCH 34.6 pg (27.0-34.0); MCV 111.7 fl (83.0-98.0); MPV 11.4 fl (9.4-12.4); PLATELET COUNT 35 K/uL (150-450); RBC 2.31 M/uL (3.50-5.50); RDW-CV 17.8 % (11.9-14.6); WBC 18.4 K/uL (4.0-11.0)
--- NOTE | 2016-07-04 05:17 | NUR ---
Significant Event: Fentanyl gtt was shut off this shift. Pt remains unresponsive. Pupils are equal and reactive. Does not withdraw. Crepitus was noted in the neck, chest and L) arm, MD notified. Chest xray and chest CT were completed. On the Vent in A/C. Peep was weened to 12. FiO2 was increased to 80%. 3+ generalized edema. Hydralazine was given x1 for SBP greater than 170. Be[address] in place with minimal urine output. No BM this shift. Dialysis line with pigtail in place, and 1 PIV. Follow up: Monitor crepitus.
--- NOTE | 2016-07-04 05:26 | NUR ---
Patients peep has been decreased to [address] stiles and in order to keep saturations >90%, FiO2 has had to be raised to 90%. Patient is experiencing subcutaneous emphysema/crepitus. Suctioning small to moderate amounst of thick, old bloody sputum, Breath sounds are all over, sometimes slightly coarse, others coarse with wheezes. Will continue to monitor.
[2016-07-04 06:02] LABS: BANDED NEUTROPHIL # 1.5 K/uL (0.0-0.1); BANDED NEUTROPHILS % 8 %; LYMPHOCYTE # 3.9 K/uL (0.8-4.0); LYMPHOCYTE % 21 %; MONOCYTE # 0.6 K/uL (0.0-1.0); SEGMENTED NEUTROPHIL # 12.5 K/uL (1.4-9.0); SEGMENTED NEUTROPHIL % 68 %
--- NOTE | 2016-07-04 15:04 | NUR ---
1452 Pt extubated to comfort upon family request. Extubated to room air.
--- NOTE | 2016-07-04 16:12 | NUR ---
1452 patient extubated per family's request. 1458 patient . family at bed side. all md's aware. 2 rn verified. pulseless and no heart/breath sounds. family voice's no concerns. all belongings sent with family. mortuary information obtained from family. spirtual care at bedside. mortuary notified of all patient's information.
== END 2016-07-04 14:59 | disposition expired | DRG 264 ==
LOC: GMED 18:44 → GPCU 21:34 → GICU 21:34 → GPCU 06-14 20:28 → GICU 06-24 10:22
PROVIDERS: Emergency Medicine; Family Medicine; Internal Medicine; Internal Medicine Critical Care Medicine; Internal Medicine Nephrology; Nurse Practitioner; ADMIT Internal Medicine
PROC: 4A023N6 Measurement of Cardiac Sampling and Pressure, Right Heart, Percutaneous Approach (ICD-10-PCS; 2016-06-13)
PROC: B211YZZ Fluoroscopy of Multiple Coronary Arteries using Other Contrast (ICD-10-PCS; 2016-06-13)
PROC: 5A1945Z Respiratory Ventilation, 24-96 Consecutive Hours (ICD-10-PCS; 2016-06-24)
PROC: 0BH17EZ Insertion of Endotracheal Airway into Trachea, Via Natural or Artificial Opening (ICD-10-PCS; 2016-06-24)
PROC: 0B9F8ZX Drainage of Right Lower Lung Lobe, Via Natural or Artificial Opening Endoscopic, Diagnostic (ICD-10-PCS; 2016-06-25)
PROC: 0B9B8ZX Drainage of Left Lower Lobe Bronchus, Via Natural or Artificial Opening Endoscopic, Diagnostic (ICD-10-PCS; 2016-06-25)
PROC: 5A1D60Z (ICD-10-PCS; principal; 2016-06-30)
DX: I13.0 Hypertensive heart and chronic kidney disease with heart failure and stage 1 through stage 4 chronic kidney disease, or unspecified chronic kidney disease (principal); J96.01 Acute respiratory failure with hypoxia; N17.0 Acute kidney failure with tubular necrosis; J18.9 Pneumonia, unspecified organism; D69.6 Thrombocytopenia, unspecified; I27.2 Other secondary pulmonary hypertension; C91.10 Chronic lymphocytic leukemia of B-cell type not having achieved remission; K76.0 Fatty (change of) liver, not elsewhere classified; I50.43 Acute on chronic combined systolic (congestive) and diastolic (congestive) heart failure; J81.0 Acute pulmonary edema; Z68.42 Body mass index [BMI] 45.0-49.9, adult; E11.9 Type 2 diabetes mellitus without complications; I27.81 Cor pulmonale (chronic); N18.9 Chronic kidney disease, unspecified; I48.0 Paroxysmal atrial fibrillation; E66.09 Other obesity due to excess calories; K21.9 Gastro-esophageal reflux disease without esophagitis; M19.021 Primary osteoarthritis, right elbow; Z66 Do not resuscitate; Z96.653 Presence of artificial knee joint, bilateral; Z87.81 Personal history of (healed) traumatic fracture; Z51.5 Encounter for palliative care; Z79.82 Long term (current) use of aspirin; Z95.1 Presence of aortocoronary bypass graft
CPT/HCPCS: A9539; A9540; C1751; C1887; C1894; C9113; J0171; J0360; J0610; J1160; J1644; J1940; J1956; J2020; J2185; J2250; J2370; J2543; J2704; J2920; J3010; J7030; J7040; J7050; J7060; J7512; P9047